=== PATIENT | female | born 1965 | race Caucasian/White ===

== ENCOUNTER 2019-11-28 07:56 | Day surgery (SDC) | payer BC, SELFPAY ==
[2019-10-05 14:51] VITALS: BMI 27.7
[2019-11-13 11:20] VITALS: BMI 27.7
--- NOTE | 2019-11-20 03:40 | HP.PCM_ITS ---
- Problem List (1) Encounter for pre-operative cardiovascular clearance Status: Acute (2) Incomplete uterovaginal prolapse Status: Acute Comment: plan [facility] BS combo case with Tyra, Franco (3) Multiple premature ventricular complexes Status: Resolved Comment: RFA 2011 History and Physical Date of Admission: 11/28/19 Intake Vital Signs 11/13/19 Height 5 ft 9 in 11/13/19 Weight: 191 lb 11/13/19 BMI 28.2 11/13/19 BP 122/76 H Intake Visit Reasons: Surgical consult, combo surg w/Tyra Vegetable Scullion Required: No Is patient in pain?: No Allergies No Known Allergies Allergy (Verified 11/13/19 11:16) Medications multivitamin 1 tab PO QDAY 09/22/17 [History Confirmed 10/05/19] naproxen sodium 220 mg tablet 220 mg PO QDAY PRN tab 09/23/17 [History Confirmed 10/05/19] vitamin E 400 unit capsule 400 unit PO QDAY 09/23/17 [History Confirmed 10/05/19] ascorbic acid (vitamin C) 1,000 mg tablet 1 g PO .QOD tab 10/05/19 [History Confirmed 10/05/19] carvedilol 6.25 mg tablet 6.25 mg PO BID #180 tab 10/05/19 [Rx Confirmed 10/05/19] cetirizine 10 mg tablet 10 mg PO DAILY 10/05/19 [History Confirmed 10/05/19] levothyroxine 88 mcg tablet 88 mcg PO DAILY 10/05/19 [History Confirmed 10/05/19] Is last menstrual period known: No Post menopausal: No Patient : No : No [facility] Social History (Updated 11/13/19 @ 13:[address] Earlene Ramirez MD) Smoking Status: Never smoker alcohol intake: current alcohol intake frequency: a few times a month Alcohol type: wine substance use type: does not use caffeine: Yes Type: coffee Number of servings: 3 HPI Surgical consult, combo surg debbie/Tyra: Details: ALLIE DOWNS is a 54 year old who presents for consultation for prolapse. she is having pelvic floor repair by dr goode and she needs a hysterectomy. she has a vaginal bulge and pressure, and ANGELA symptoms. Female Reproductive History Questions: Metorrhagia: No, Sexually active: Yes, Dyspareunia: Yes, PCB: No Menopausal Symptoms: No hot flashes, No night sweats, No weight change, No mood changes, No difficulty concentrating, No sleep problems, No change in libido Pregancy History Elective abortions Hx Para 3 Spontaneous abortions Hx # Term Pregnancies 3 Ectopic pregnancies Hx # Pregnancies Multiple births # of living children 3 Past Pregnancies Del. Date Name GA/Weeks Outcome Route Bth Weight [facility] F[facility]- Jud Unknown 1997- Neil Unknown 2000- Veronica COSME Const Constitutional: Denies fatigue, fever(s), headache(s), increased appetite, poor appetite, night sweats, weight gain or weight loss ENT ENT: Denies dizziness or dry mouth Cardio Card: Denies chest pain Resp Resp: Denies cough or dyspnea GI GI: Reports as per HPI; denies abdominal pain, constipation, nausea or vomiting : Reports as per HPI, prolapse symptoms and urinary incontinence; denies difficulty urinating, painful urination, hot flashes, pelvic pain, urinary frequency, urinary hesitancy, urinary urgency, vaginal discharge, vaginal dryness, vaginal odor or vaginal itching Musc Musc: Reports joint pain and back pain; denies muscle weakness Skin Skin/Breast: Denies hair loss, change in hair, dry skin, breast lump, breast pain or breast skin changes Neuro Neuro: Denies dizziness Psych Psych: Denies anxiety, change in sex drive, depression or difficulty concentrating Endo Endo: Denies cold intolerance, excessive sweating, heat intolerance or increased thirst Zander/Lymph Hematologic/Lymphatic: Denies easy bleeding, Denies easy bruising, Denies enlarged lymph nodes Exam Const General: cooperative, healthy appearing, comfortable, no acute distress, well developed Nutritional Appearance: average body habitus Orientation: alert [facility] Head: normal to inspection, normocephalic Ears: hearing grossly normal bilaterally, external ears normal Nose: external nose normal, nares normal Face and sinus: normal facial exam Neck Neck: normal visual inspection, no lymphadenopathy, trachea midline Thyroid: thyroid normal Chest Chest palpation & inspection: normal inspection of the chest Resp Effort & Inspection: normal respiratory effort Auscultation: clear to auscultation bilaterally Cardio Rate: regular rate Rhythm: regular rhythm Heart Sounds: S1 normal, S2 normal GI Inspection: normal to inspection, non-distended Palpation: soft, no hepatosplenomegaly General: bladder normal to palpation External Female Exam: normal external appearance, normal appearance of the urethra Urethra: normal appearance of the urethra, normal palpation, no discharge Speculum Exam - Vagina: normal appearance of the vagina, normal vaginal discharge Speculum Exam - Cervix: normal appearance of the cervix, nontender Bimanual Exam- Vagina & Uterus: normal bimanual exam, normal vaginal palpation, uterine size normal, bladder normal to palpation, uterine shape normal, No cervical tenderness, uterine mobility normal, uterine consistency normal, normal cervical palpation, uterus non-tender Bimanual Exam- Adnexa, other: normal adnexae, adnexae mobile, no adnexal masses, rectocele, cystocele, vaginal apex descent Pelvic Support: cystocele, rectocele, vaginal apex descent Musc Cervical Spine: other Other: gross motor intact no deficits, full bilateral strength Skin General: no rashes or lesions noted Neuro General: alert, awake, moves all extremities, no focal motor deficits Motor: muscle tone normal throughout Extrem General: normal to inspection, no pedal edema Psych Appearance: grossly normal Mental Status: mental status grossly normal Affect: normal affect Speech and Movement: speech and movement normal Assessment & Plan Problems 1. Incomplete uterovaginal prolapse N81.2 plan [facility] BS combo case with Tyra, Franco Mccurdy After discussing the patient's diagnosis and treatment plan options, patient wishes to proceed with surgical management. I have discussed with the patient the risks, benefits, and alternatives of the procedure which include but are not limited to risks of anesthesia, bleeding, infection, possible damage to bowel, bladder, or surrounding vasculature which could lead to additional surgery to ev aluate any complications. Patient agrees to procedure and wishes to proceed. ACOG/uptodate references given for additional information regarding procedure. Coding Level of Care Code Off vis,new,level 4 Diagnoses Incomplete uterovaginal prolapse N81.2
--- NOTE | 2019-11-23 10:28 | EKG12_ITS ---
Test Reason : PRE OP Blood Pressure : / mmHG Vent. Rate : 057 BPM Atrial Rate : 057 BPM P-R Int : 172 ms QRS Dur : 080 ms QT Int : 424 ms P-R-T Axes : 050 -35 009 degrees QTc Int : 412 ms Sinus bradycardia Left axis deviation Low voltage QRS Septal infarct , age undetermined Abnormal ECG Confirmed by RANJAN CASE, PATTY ([id number]), social media editor NAIDA MIJARES ([id number]) on 11/27/2019 10:51:02 A M Referred By: Diane Mary Confirmed By:BRYCE WOODRUFF MD
[2019-11-23 10:40] LABS: Hematocrit 40.6 % (37-47); Hemoglobin 13.8 g/dL (12.0-15.0); Mean Corpuscular Hgb 32.4 pg (27.0-32.0); Mean Corpuscular Volume 95.3 fL (81-99); Mean Platelet Vol. 9.4 fl (6.2-12.0); Platelet Count 223 K/mm3 (150-450); RBC Distribution Width CV 12.1 % (11.6-14.6); RBC Distribution Width SD 42.3 fl (35.1-43.9); Red Blood Count 4.26 M/mm3 (4.2-5.4); White Blood Count 4.6 K/mm3 (4.4-11.0)
[2019-11-23 10:45] LABS: Internal QC Validated? YES +Cl - CLEAR BKGD; Pregnancy, Urine Negative Negative
[2019-11-23 11:18] LABS: Anion Gap 6 (5-15); BUN 13 mg/dL (7-18); BUN/Creat Ratio 15.1 RATIO (10-20); Calcium,Total 9.2 mg/dL (8.5-10.1); Chloride 107 mmol/L (98-107); Creatinine, Serum 0.86 mg/dL (0.55-1.02); EST Glomerular Filtration Rate 73 mL/min (>60); Est Glom Filt Rate - Afr Amer 88 mL/min (>60); Glucose 83 mg/dL (74-106); Sodium Level 141 mmol/L (136-145); Thyroid Stim Hormone (TSH) 8.92 uIU/mL (0.358-3.74)
[2019-11-28] VITALS (14 sets, daily range): BP systolic 92–123; BP diastolic 54–79; PULSE 57–83; RESP 12–18; TEMP 36.4–36.6; O2SAT 95–100; BMI 28.5
--- NOTE | 2019-11-28 08:20 | HP.PCM_ITS ---
Problem List (1) Incomplete uterovaginal prolapse Status: Acute Comment: plan [facility] BS combo case with Tyra Franco History of Present Illness Date of Admission: 11/28/19 Chief Complaint: pelvic organ prolapse The patient is a 54 year old F with pelvic organ prolapse. She was evaluated in the office with cystoscopy and urodynamics. She now presents for definitive surgical intervention in combination with Dr. Ramirez. Risks were discussed preoperatively including that of anesthesia, bleeding, infection, injury, long- term risks and then risks of COVID 19 both the infection and increased complication if she has the disease. She understands and desires to proceed. Past Medical History Medical History: Medical History (Last Reviewed 11/28/19 @ 08:[address] Diane Mary MD) Multiple premature ventricular complexes (Resolved) I49.49 RFA 2011 Hypothyroidism E03.9 PVC's (premature ventricular contractions) I49.3 Scoliosis M41.9 Paroxysmal ventricular tachycardia I47.2 RFA 2011 Palpitations (Inactive) R00.2 Primary cardiomyopathy (Inactive) I42.8 Allergies No Known Allergies Allergy (Verified 11/28/19 08:01) Home Medications: Ambulatory Orders Medication Instructions Recorded multivitamin 1 tab PO QDAY 09/22/17 naproxen sodium 220 mg tablet 220 mg PO QDAY PRN tab 09/23/17 vitamin E 400 unit capsule 400 unit PO QDAY 09/23/17 carvedilol 6.25 mg tablet 6.25 mg PO BID #180 tab 10/05/19 cetirizine 10 mg tablet 10 mg PO DAILY 10/05/19 levothyroxine 88 mcg tablet 112 mcg PO DAILY 10/05/19 Vitamin B Complex 1 ea PO DAILY 11/21/19 Surgical History: Surgical History (Last Reviewed 11/28/19 @ 08:[address] Diane Mary MD) History of umbilical hernia repair Z98.890, Z87.19 History of radiofrequency ablation (RFA) procedure for cardiac arrhythmia Onset Date: 01/02/12 Z98.890 01/02/2012 EP with RFA for PVCs at [facility] Smoking Status: Never smoker Tobacco Use: Non-smoker Review of Systems Constitutional: Denies: Anorexia, Chills Eyes: Denies: Vision Change HEENT: Denies: Difficulty Swallowing, Visual Changes Cardiovascular: Denies: Chest Pain, Chest Pressure Respiratory: Denies: Cough, Shortness of Breath Gastrointestinal: Denies: Abdominal Pain, Nausea, Vomiting Genitourinary: Denies: Dysuria, Hematuria Gynecological: Denies: Vaginal discharge Musculoskeletal: Denies: Muscle pain Skin: Denies: Wounds Neurological: Denies: Difficulty swallowing VTE Information - Inpt Only VTE Present on Admission: Yes VTE Mechan Device Prophylaxis: SCD's VTE Pharm Prophylaxis ordered?: Yes - Physical Exam Vitals/I&O's: Body Mass Index (BMI) 27.7 General: Alert, Oriented x3, Cooperative HEENT: Atraumatic, Normocephalic Oral: Moist Mucosa Neck: Supple, Trachea Midline Lungs: Normal air movement Cardiovascular: Regular rate, Regular Rhythm Abdomen: Soft, Non Tender, Non-Distended Extremities: No cyanosis Skin: No rashes Musculoskeletal: No Muscle Wasting Neurological: Cranial nerves II-XII grossly intact, Neuro grossly intact Psych/Mental Status: Normal Affect, Alert and oriented to time, place, person, mood and affect Laboratory Results 11/23/19 10:19: Magnesium Pending Current Medications Acetaminophen (Tylenol) 1,000 mg PO PREOP ONE Stop: 11/28/19 09:41 Celecoxib (Celebrex) 400 mg PO X1 ONE Stop: 11/28/19 09:41 Dexamethasone Sodium Phosphate (Decadron) 8 mg IV X1 ONE Stop: 11/28/19 09:41 Enoxaparin Sodium (Lovenox) 40 mg SC X1 ONE Stop: 11/28/19 09:41 Gabapentin (Neurontin) 600 mg PO PREOP ONE Stop: 11/28/19 09:41 Lactated Ringer's () 1,000 mls @ 40 mls/hr IV .Q25H FERCHO Cefazolin Sodium 2 gm/ Sodium (Chloride) 110 mls @ 150 mls/hr IV PREOP ONE Stop: 11/28/19 10:23 Lactated Ringer's () 1,000 mls @ 70 mls/hr IV .[id number] FERCHO Magnesium Sulfate 2.5 gm/ (Sodium Chloride) 105 mls @ 52 mls/hr IV X1 ONE Stop: 11/28/19 10:12 Insulin Human Lispro (Humalog Kwikpen (Bkc)) 0 unit SC Q4H PRN PRN; Protocol PRN Reason: BG >/= 180, SEE PROTOCOL Ondansetron HCl (Zofran) 4 mg IV X1 ONE Stop: 11/28/19 09:41 Scopolamine HBr (Transderm-Scop) 1 patch TRANSDERM. X1 ONE Stop: 11/28/19 09:41 Assessment/Plan All Active Problems (Last Reviewed 10/05/19 @ 15:[address] Josh Palacios MD) Incomplete uterovaginal prolapse (Acute) Encounter for pre-operative cardiovascular clearance (Acute) Multiple premature ventricular complexes (Resolved) proceed with pelvic reconstruction with , hysterectomy. Procedure Criteria Procedure Type: Elective COVID Risk Discussion: The surgeon/proceduralist and patient have discussed in detail the risk of exposure to and/or potential harm posed by the COVID-19 virus with having a surgery/procedure at this time versus the risk of delaying the surgery/procedure. It is not possible to know either the risk of delaying the surgery or procedure or chance of getting an infection with perfect accuracy, but a joint decision was made between the patient and the surgeon/proceduralist to proceed at this time with the scheduled surgery/procedure as indicated on the consent form.
[2019-11-28 08:26] LABS: Bedside Glucose 105 mg/dL (70-110)
[2019-11-28 08:32] LABS: Magnesium 2.4 mg/dL (1.6-2.6)
[2019-11-28] MEDS: Acetaminophen 500 MG Tablet 1000 MG PO ×2 (08:36→20:56)
[2019-11-28] MEDS: Gabapentin 600 MG Tablet PO (08:36)
[2019-11-28] MEDS: Celecoxib 200 MG Capsule 400 MG PO (08:36)
[2019-11-28] MEDS: Scopolamine 1mg/72hr Patch 1 PATCH TRANSDERM. (08:37)
[2019-11-28] MEDS: Enoxaparin 40 MG/0.4 ML Syringe SC (08:37)
[2019-11-28] MEDS: Lactated Ringers 1,000 ML 40 ML IV (08:40)
[2019-11-28] MEDS: dexAMETHasone 10 MG/ML Vial 8 MG IV (08:44)
[2019-11-28] MEDS: Cefazolin 2 GM in 0.9% Normal Saline 100 ML IV (09:48)
--- NOTE | 2019-11-28 09:51 | OP.PCM_ITS ---
Problem List (1) Encounter for pre-operative cardiovascular clearance Status: Acute (2) Incomplete uterovaginal prolapse Status: Acute Comment: plan [facility] BS combo case with Tyra, Franco Report of Operation Date of Procedure: 11/28/19 Pre-Operative Diagnosis: prolapse Post-Operative Diagnosis: same Surgery/Procedure Performed:: tvh bs Description of Surgical Findings:: prolapsed uterus access services representative: Kashif Martinez Type of Anesthesia:: General Special Medications: none Specimen's removed: uterus tubes Drains: george Estimated Blood Loss (mL): 50 Fluids Replaced: crystalloid Description of Procedure: Patient was taken to the operating room and was placed under general anesthesia was prepped and draped in normal sterile fashion in the dorsal lithotomy position. Preoperative antibiotics and SCDs and George catheter was placed inside the bladder. Weighted speculum was placed in the vagina and the anterior and posterior lip of the cervix was grasped with 2 Sary clamps and circumferentially injected with dilute vasopressin. A circumferential incision was made with a scalpel and the posterior cul-de-sac was entered into sharply and a longneck speculum was placed. The anterior cul-de-sac was also dissected down and entered into sharply and the uterosacral ligaments were clamped cut and suture ligated bilaterally followed by the cardinal ligaments which were Clamped cut and suture ligated bilaterally with 0 Monocryl. The uterus serially descended and progressive bites were taken bilaterally up to the level of the utero-ovarian ligament bilaterally which was clamped transected and double ligated with 0 Monocryl suture and 0 Vicryl free tie. Bilateral fallopian tubes and ovaries were well visualized and noted be within normal limits and the right fallopian tube was transected across the base with a Michelle clamp and removed and sutured with 0 Vicryl suture. Excellent hemostasis was noted. left tube visualized but outside of operative field to safely remove. nl ovaries bilaterally. The vagina was closed with [id number] 0 Vicryl pop offs including the posterior and anterior peritoneum in the reapproximation. Excellent hemostasis was noted. All instruments removed from the vagina clear urine was noted at the end of the procedure and patient was awoken and taken recovery in stable condition. Grafts/Implants Used: see urogyn note - Complications none - Admit VTE Documentation VTE Present on Admission: No VTE Mechan Device Prophylaxis: SCD's VTE Pharm Prophylaxis ordered?: Yes Multi Select Codes - Urinary/Genital Urinary/Genital CPT Codes: 37810 TVH+BS/O <250gr uterus
--- NOTE | 2019-11-28 09:55 | DCINST_ITS ---
Discharge Diet: No Restrictions Discharge Activity: Return to Normal Activity, May Not Drive, May Shower May resume sexual activity in: 6-8 weeks Call your doctor if your incision/area has: Continuous Slow Oozing, Sudden Increased Bleeding, Increased Pain/ Swelling, Increased Redness, Foul Smelling Discharge Call your doctor if you observe: Fever of 101 or Higher, Inability to urinate, Inability to have a bowel movement, Using more than one pad per hour Allergies/Adverse Reactions: Allergies No Known Allergies Allergy (Verified 11/28/19 08:01) Medications to take at Discharge multivitamin 1 tab PO QDAY 09/22/17 naproxen sodium 220 mg tablet 220 mg PO QDAY PRN tab 09/23/17 vitamin E 400 unit capsule 400 unit PO QDAY 09/23/17 carvedilol 6.25 mg tablet 6.25 mg PO BID #180 tab 10/05/19 cetirizine 10 mg tablet 10 mg PO DAILY 10/05/19 levothyroxine 88 mcg tablet 112 mcg PO DAILY 10/05/19 Vitamin B Complex 1 ea PO DAILY 11/21/19 Naproxen [Naprosyn] 250 - 500 mg PO Q8H PRN PRN #30 tab 11/28/19 Oxycodone HCl/Acetaminophen [Percocet 5-325] 1 - 2 tablet PO Q6H PRN PRN 7 Days #15 tablet 11/28/19 The following prescriptions were given: Naproxen [Naprosyn] 250 - 500 mg PO Q8H PRN PRN #30 tab PRN Reason: MILD PAIN Transmission Status: Pending to [facility] Oxycodone HCl/Acetaminophen [Percocet 5-325] 1 - 2 tablet PO Q6H PRN PRN 7 Days #15 tablet PRN Reason: Pain Transmission Status: Sent to [facility] Primary Care Physician: Mitzi Jones PA-C [Primary Care Provider] - Test Results: Test results from this visit will be discussed in further detail at your follow- up appointment, if applicable. Please Follow Up With: Earlene Ramirez MD - [phone]
--- NOTE | 2019-11-28 10:00 | HYST_PTH ---
PATIENT: ALLIE DOWNS LOC: [facility] U#:[id number] AGE/SX: 54/F ROOM: RE11/28/[address]: ELIZABETH Dubose : 1965 BED: DIS: 11/29/2019 SPEC #: [id number] RECD: 11/28/19 12:18 STATUS: SRIKANTH REBev #: [id number] DONALDO: 11/28/19 10:[address]: Earlene Ramirez DEPT: SURGICAL PATHOLOGY RECD BY: Dany Moses ENTERED: 11/28/19 12:41 SP TYPE: HYSTERECT OTHR DR: MD Dr. Earlene Bradford MD Kimberly Hills, PA-C Tissues: A - Uterus, NOS B - Uterus, NOS Procedures: Decalcification bone/plaque Surgery Specimen Level IV Surgery Specimen Level V Comments: @ Ordering doctor for SUIV edited from to @ by MUNA at 12/01/19 1022 @ Submitting doctor edited from to @ by RGOOD at 12/01/19 1022 HEADER OPERATION: ERAS, vaginal hysterectomy, right salpingectomy PRE-OP DIAGNOSIS: Incomplete uterovaginal prolapse TISSUE SUBMITTED: A - Uterus and right fallopian tube, B - Cul-de-sac tissue MICROSCOPIC DIAGNOSIS A. Uterus and right fallopian tube, vaginal hysterectomy and right salpingectomy: Cervix - mild chronic cystic cervicitis. Endometrium - proliferative endometrium. Myometrium - focal superficial adenomyosis. Right fallopian tube - no pathologic diagnosis. B. Cul-de-sac tissue: A piece of fibroconnective tissue with extensive dystrophic calcification. SJ:rg 12/01/19 A. MICROSCOPIC DESCRIPTION Slides are reviewed. GROSS DESCRIPTION A - Received in fixative is one container labeled with the patient's name and designated uterus and right fallopian tube. The specimen consists of a hysterectomy specimen consisting of uterus with cervix and detached fallopian tube identified as right. The uterus with cervix weighs 30 gm and measures 7.5 x 4 x 2.2 cm. The serosal surface is mead, glistening. The ectocervical mucosa is unremarkable. The external os is slit-like in contour. The endocervical canal measures 3 cm in length and the endocervical mucosa is unremarkable. The triangular endometrial cavity measures 3.5 cm in length and 1.5 cm in width. The endometrium is mead, glistening without any mass lesion and measures <0.1 cm in thickness. Sections of the uterine wall do not reveal any mass lesion and measures up to 1.4 cm in thickness. The detached fallopian tube identified as right measures 3.2 cm in length and 0.5 cm in diameter. The fimbrial end is identified. Sections reveal unremarkable cut surfaces. Shipping Receiving Manager sections are submitted in seven cassettes as follows: 1 - anterior cervix, 2 - posterior cervix, 3 & 4 - anterior uterine wall, 5 & 6 - posterior uterine wall, 7 - fallopian tube identified as right. B - Received in fixative is one container labeled with the patient's name and designated cul-de-sac tissue. The specimen consists of a piece of indurated tissue measuring 2.5 x 1.7 x 1 cm. Shipping Receiving Manager sections are submitted in one cassettes after decalcification. / SJ:rg 11/28/19 TC:5 CPT: 35248, 62356, 80659
[2019-11-28] MEDS: Ondansetron 4 MG/2 ML Vial IV (11:30)
[2019-11-28] MEDS: Lactated Ringers 1,000 ML 70 ML IV ×3 (11:30→20:54)
[2019-11-28] MEDS: Vasopressin 20 UNITS/ML Vial (11:47)
[2019-11-28] MEDS: Estrogens,Conj. 1 Tube 1 DOSE (11:51)
--- NOTE | 2019-11-28 12:04 | PCM.OPRPT ---
Problem List (1) Incomplete uterovaginal prolapse Status: Acute Comment: plan [facility] BS combo case with Tyra, Franco Report of Operation Date of Procedure: 11/28/19 Pre-Operative Diagnosis: uterovaginal prolapse, urethral hypermobility Post-Operative Diagnosis: same Surgery/Procedure Performed:: anterior repair, posterior repair, right sacrospinous ligament fixation, midurethral sling, cystoscopy with bilateral ureteral catheterization Type of Anesthesia:: General Estimated Blood Loss (mL): 50cc Description of Procedure: The patient is a 54-year-old female with prolapse who presents for surgical definitive repair. Informed consent was obtained preoperatively. She was evaluated in the office with cystoscopy and urodynamics. The patient was taken to the operating room and placed on the operating room table. Anesthesia monitored the head, neck, airway, IV access and vital signs throughout the case. Once anesthesia was appropriate ministered the patient was placed into exaggerated dorsal lithotomy in Trendelenburg position. Dr. Ramirez then performed a hysterectomy with removal of her right fallopian tube and ovary and closure of the vaginal cuff. The procedure was then turned over to ma. Her anterior vaginal wall was injected submucosally with vasopressin for hydrostatic dissection and hemostatic control. A midline vertical incision approximately 2 cm in length was then made. Both sharp and blunt dissection was performed until bilaterally the pubocervical fascia was identified and brought together in a 2 layer closure with 2-0 Vicryl suture. The vagina was closed using running interlocking 2-0 Vicryl. At this time attention was turned towards the posterior defect. Once again the vagina was injected in the submucosal area. A midline incision was made followed by sharp and blunt dissection until the right ischial spine was palpable. The sacrospinous ligament was identified and freed from surrounding tissues. Using a Monodek suture and a Capio device, the suture was passed through the right sacrospinous ligament and was then brought through the vagina full-thickness at the apex. At this time the posterior defect was closed by bringing the rectovaginal fascia together in a 2 layer closure with 2-0 Vicryl suture. The vaginal mucosa was then closed with running interlocking 2-0 Vicryl. The area of the mid urethra was then submucosally injected and a vertical midline incision was made. Sharp and blunt dissection was performed on either side of the urethra with care being taken to avoid entrance into the urethra or the bladder. There was difficulty with the first passage of the alto's mid urethral sling on the patient's left side as the tensioning suture was unable to be identified following passage of the second trocar. The sling was then cut the tines were left in situ. A second sling was inserted using the trochars and there was no difficulty. The sling lay flat against the urethra without tension. The tensioning suture was then cut. The vertical midline incision was then closed with running interlocking 2-0 Vicryl. A cystourethroscopy was then performed revealing no entry into the urinary bladder or the urethra with any foreign object. At this time using the 30 degree lens, a 5 Slovenian whistle-tip catheter was easily inserted first into the left ureteral orifice to 20 cm followed by the right side. There is no obstruction and no blood was seen. At this time the Dyer catheter was replaced and the bladder was emptied. The vagina was packed with Premarin cream and vaginal packing. The patient was then awakened and taken to the recovery room in good condition. There were no complications during this procedure. Grafts/Implants Used: Altis midurethral sling - Complications none - Admit VTE Documentation VTE Present on Admission: Yes VTE Mechan Device Prophylaxis: SCD's VTE Pharm Prophylaxis ordered?: Yes
--- NOTE | 2019-11-28 12:11 | PCM.DC.URO ---
Discharge Diet: No Restrictions Discharge Activity: May Not Drive, May Shower May resume sexual activity in: 8 weeks Additional Activity Instructions:: No exercise, no strenuous activity, no intercourse, nothing per vagina except patient is to continue vaginal estrogen cream. No lifting over 5 pounds, no vacuuming. Call your doctor if your incision/area has: Continuous Slow Oozing, Sudden Increased Bleeding, Increased Pain/ Swelling, Increased Redness, Foul Smelling Discharge Call your doctor if you observe: Fever of 101 or Higher, Inability to urinate, Inability to have a bowel movement, Using more than one pad per hour Allergies/Adverse Reactions: Allergies No Known Allergies Allergy (Verified 11/28/19 08:01) Medications to take at Discharge multivitamin 1 tab PO QDAY 09/22/17 naproxen sodium 220 mg tablet 220 mg PO QDAY PRN tab 09/23/17 vitamin E 400 unit capsule 400 unit PO QDAY 09/23/17 carvedilol 6.25 mg tablet 6.25 mg PO BID #180 tab 10/05/19 cetirizine 10 mg tablet 10 mg PO DAILY 10/05/19 levothyroxine 88 mcg tablet 112 mcg PO DAILY 10/05/19 Vitamin B Complex 1 ea PO DAILY 11/21/19 Naproxen [Naprosyn] 250 - 500 mg PO Q8H PRN PRN #30 tab 11/28/19 Oxycodone HCl/Acetaminophen [Percocet 5-325] 1 - 2 tab PO Q6H PRN PRN 7 Days #15 tab 11/28/19 The following prescriptions were given: Naproxen [Naprosyn] 250 - 500 mg PO Q8H PRN PRN #30 tab PRN Reason: MILD PAIN Transmission Status: Received by [facility] Oxycodone HCl/Acetaminophen [Percocet 5-325] 1 - 2 tab PO Q6H PRN PRN 7 Days #15 tab PRN Reason: Pain Transmission Status: Received by [facility] Primary Care Physician: Mitzi Jones PA-C [Primary Care Provider] - Test Results: Test results from this visit will be discussed in further detail at your follow-up appointment, if applicable. Please Follow Up With: Diane Mary MD When: call office for appt Proposed Discharge Date: 11/29/19
[2019-11-28] MEDS: Ketorolac 30 MG/ML Syringe IV ×2 (15:42→21:03)
[2019-11-28] MEDS: 0.9% Saline Lock 10 ML Syringe IV (15:44)
[2019-11-28] MEDS: Cefazolin 1 GM/50 ML BAG IV (18:36)
[2019-11-28] MEDS: Docusate Sodium 100 MG Capsule PO (21:04)
[2019-11-29] MEDS: Cefazolin 1 GM/50 ML BAG IV (01:33)
[2019-11-29 01:45] VITALS: BP 104/58; PULSE 51; RESP 16; TEMP 36.8; O2SAT 100
[2019-11-29] MEDS: Acetaminophen 500 MG Tablet 1000 MG PO ×2 (03:53→10:42)
[2019-11-29] MEDS: Ketorolac 30 MG/ML Syringe IV ×2 (03:54→10:43)
[2019-11-29 05:40] LABS: Hematocrit 33.3 % (37-47); Mean Corpuscular Volume 96.8 fL (81-99); Mean Platelet Vol. 9.1 fl (6.2-12.0); Platelet Count 185 K/mm3 (150-450); RBC Distribution Width CV 12.2 % (11.6-14.6); RBC Distribution Width SD 42.7 fl (35.1-43.9); Red Blood Count 3.44 M/mm3 (4.2-5.4); White Blood Count 8.1 K/mm3 (4.4-11.0)
[2019-11-29] MEDS: Levothyroxine 112 MCG Tablet PO (06:00)
[2019-11-29 06:46] VITALS: O2SAT 95
--- NOTE | 2019-11-29 07:58 | PCM.PN.OB ---
Subjective: Pain controlled. NO SOB, CP. Doing well. Tolerating PO intake. - Physical Exam Vitals/I&O's: Vital Signs Temp Pulse Resp BP Pulse Ox 98.2 F 51 L 16 104/58 L 95 11/29/19 01:45 11/29/19 01:45 11/29/19 01:45 11/29/19 01:45 11/29/19 06:46 Oxygen Flow Rate (L/min) 6 Oxygen Delivery Method Room Air Weight: 190 lb 11.198 oz Body Mass Index (BMI) 28.5 Intake and Output for Last 24 Hours 11/27/19 11/28/19 11/29/19 23:59 23:59 23:59 Intake Total 3692.16 / 3692.16 700 / 700 Output Total 1270 / 1270 350 / 350 Balance 2422.16 / 2422.16 350 / 350 General: Oriented x3 HEENT: Atraumatic Skin: No rashes Psych/Mental Status: Normal Affect Laboratory Results 11/28/19 08:16: Magnesium 2.4 11/28/19 08:22: POC Glucose 105 11/29/19 05:28: WBC 8.1, RBC 3.44 L, Hgb 11.0 L, Hct 33.3 L, MCV 96.8, MCH 32.0, MCHC 33.0, RDW Std Deviation 42.7, RDW Coeff of Darlin 12.2, Plt Count 185, MPV 9.1 Current Medications Acetaminophen (Tylenol) 1,000 mg PO Q6H [facility] Last Admin: 11/29/19 03:53 Dose: 1,000 mg Documented by: Carvedilol (Coreg) 6.25 mg PO BID [facility] Last Admin: 11/28/19 22:38 Dose: Not Given Documented by: Docusate Sodium (Colace) 100 mg PO BID [facility] Last Admin: 11/28/19 21:04 Dose: 100 mg Documented by: Enoxaparin Sodium (Lovenox) 40 mg SC DAILY [facility] Lactated Ringer's () 1,000 mls @ 70 mls/hr IV .[id number] [facility] Stop: 11/29/19 13:54 Last Admin: 11/28/19 20:54 Dose: 70 mls/hr Documented by: Sodium Chloride () 250 mls @ 15 mls/hr IV .[id number] PRN PRN Reason: Saline Flush Ketorolac Tromethamine (Toradol (Bkc)) 30 mg IV Q6H [facility] Stop: 11/29/19 22:01 Last Admin: 11/29/19 03:54 Dose: 30 mg Documented by: Levothyroxine Sodium (Synthroid) 112 mcg PO DAILY@0600 [facility] Last Admin: 11/29/19 06:00 Dose: 112 mcg Documented by: Loratadine (Claritin) 10 mg PO DAILY [facility] Magnesium Oxide (Mag-Ox 400) 400 mg PO DAILY PRN PRN PRN Reason: Constipation Multivitamins (Multivitamin) 1 tablet PO DAILY@0800 [facility] Nutritional Formula (Lactose Free) (Ensure Enlive) 120 ml PO TIDCM [facility] Ondansetron HCl (Zofran Odt) 4 mg PO Q6H PRN PRN PRN Reason: NAUSEA Oxycodone HCl (Oxyir) 5 - 10 mg PO Q4H PRN PRN PRN Reason: Pain Score 4-10/10 Prochlorperazine Edisylate (Compazine Iv) 10 mg IV Q6H PRN PRN PRN Reason: nausea/ vomiting Promethazine HCl (Phenergan) 12.5 mg IV Q6H PRN PRN PRN Reason: NAUSEA/VOMITING Sodium Chloride () 10 - 40 ml IV UD PRN PRN Reason: SALINE FLUSH Last Admin: 11/28/19 15:44 Dose: 10 ml Documented by: Medical Necessity - Tobacco Use Smoking Status: Never smoker Tobacco Use: Non-smoker Assessment/Plan All Active Problems (Last Reviewed 11/28/19 @ 08:[address] Diane Mary MD) Incomplete uterovaginal prolapse (Acute) Encounter for pre-operative cardiovascular clearance (Acute) Multiple premature ventricular complexes (Resolved) TVH RS combination case Dr. Mary postop day #1 Routine care See note and discharge instructions per Dr. Mary Plans home today.
--- NOTE | 2019-11-29 08:14 | PCM.PN.BLA ---
Progress Note Patient is post-op day #1 from hysterectomy and pelvic reconstruction. Up in bed, struggling with nausea but hasn't asked for medication for it. Vitals are good. Abdomen soft, urine clear. Dyer and packing removed. Trial of void, ambulate, nausea control, nursing getting zofran, home later today. STROKE Vital Signs/Narrative: Vital Signs Pulse Ox 11/29/19 06:46 95
[2019-11-29 08:20] VITALS: BP 99/58; PULSE 60; RESP 16; TEMP 36.9; O2SAT 100
[2019-11-29] MEDS: Ondansetron ODT 4 MG Tablet PO (10:03)
[2019-11-29] MEDS: Docusate Sodium 100 MG Capsule PO (10:42)
[2019-11-29] MEDS: Loratadine 10 MG Tablet PO (10:42)
[2019-11-29] MEDS: Multivitamins,Therapeutic Tablet 1 TABLET PO (10:42)
[2019-11-29] MEDS: Enoxaparin 40 MG/0.4 ML Syringe SC (10:43)
[2019-11-29 14:05] VITALS: BP 109/64; PULSE 52; RESP 16; TEMP 36.8; O2SAT 98
== END 2019-11-29 16:37 | disposition home or self-care (01) ==
LOC: SDC 07:59 → AC 08:03 → MS3 11:11
PROVIDERS: Anesthesiology; Obstetrics & Gynecology; PCP Family Medicine; Referring Provider Urology; Visit Provider Nurse Practitioner Family
PROC: (CPT 58260; principal; 2019-11-28 09:40)
PROC: (CPT 57260; 2019-11-28 09:40)
DX: N81.2 Incomplete uterovaginal prolapse (principal); Z11.59 Encounter for screening for other viral diseases; I49.3 Ventricular premature depolarization; M41.9 Scoliosis, unspecified; E03.9 Hypothyroidism, unspecified; Z79.899 Other long term (current) drug therapy; G25.81 Restless legs syndrome; K21.9 Gastro-esophageal reflux disease without esophagitis; N36.41 Hypermobility of urethra
CPT/HCPCS: 00940; 57260; 57288; 58262; 36415; 80048; 81025; 82962; 83735; 84443; 85027; 86850; 86900; 86901; 87635; 88305; 88307; 88311; 93005; 99251; G2023; J7120; A4216; G0463; J2405; U0003

== ENCOUNTER → 2019-12-04 11:46 | Outpatient (CLI) | payer BC, SELFPAY ==
[2019-11-28 08:25] VITALS: BMI 28.5
[2019-12-04 12:23] LABS: Hematocrit 41.1 % (37-47); Hemoglobin 13.4 g/dL (12.0-15.0); Mean Corp Hgb Conc 32.6 g/dL (32-36); Mean Corpuscular Volume 98.1 fL (81-99); Mean Platelet Vol. 9.2 fl (6.2-12.0); Platelet Count 282 K/mm3 (150-450); RBC Distribution Width CV 12.4 % (11.6-14.6); RBC Distribution Width SD 44.2 fl (35.1-43.9); Red Blood Count 4.19 M/mm3 (4.2-5.4); White Blood Count 5.7 K/mm3 (4.4-11.0)
[2019-12-04 12:37] LABS: Anion Gap 4 (5-15); BUN 14 mg/dL (7-18); BUN/Creat Ratio 17.2 RATIO (10-20); Calcium,Total 9.1 mg/dL (8.5-10.1); Chloride 106 mmol/L (98-107); Creatinine, Serum 0.82 mg/dL (0.55-1.02); EST Glomerular Filtration Rate 77 mL/min (>60); Est Glom Filt Rate - Afr Amer 94 mL/min (>60); Glucose 100 mg/dL (74-106); Sodium Level 139 mmol/L (136-145)
== END ==
PROVIDERS: PCP Family Medicine; Referring Provider Urology; Visit Provider Urology
DX: Z00.00 Encounter for general adult medical examination without abnormal findings (principal)
CPT/HCPCS: 36415; 80048; 85027

== ENCOUNTER 2019-12-07 12:31 | Outpatient (RCR) | payer BC, SELFPAY ==
[2019-11-28 08:25] VITALS: BMI 28.5
[2019-12-07 12:37] VITALS: BP 117/72; PULSE 84; RESP 16; TEMP 36.4; BMI 26.9
--- NOTE | 2019-12-07 16:37 | HP.PCM_ITS ---
(1) Pressure injury of back, unstageable Status: Acute Current Visit: Yes Code(s): L89.100 - Pressure ulcer of unspecified part of back, unstageable (2) H/O unilateral salpingectomy Status: Acute Current Visit: Yes Code(s): Z90.79 - Acquired absence of other genital organ(s) (3) History of total vaginal hysterectomy (TVH) Status: Acute Current Visit: Yes Code(s): Z90.710 - Acquired absence of both cervix and uterus (4) Incomplete uterovaginal prolapse Status: Acute Current Visit: Yes Code(s): N81.2 - Incomplete uterovaginal prolapse Comment: plan TVH BS combo case with Tyra, Franco History of Present Illness Date of Service: 12/07/19 Chief Complaint: Pressure injury back status post recent surgery for total hysterectomy History of Wound: This is a 54-year-old white female who presents to the wound healing center today with complaint of pressure injury to her low back. This occurred per patient report after her surgery for pelvic reconstruction and total hysterectomy on 11/28/2019. She states that it occurred due to the way she was positioned on the operating table. She notes that her surgery went well, however she did develop this pressure injury and has been placed on Bactrim and utilizing a dressing over top of the injury. She states that she has been trying to keep pressure off the injury. She denies any systemic signs of infection at this time. She denies any fever, chills, purulent drainage, or any other acute concerns. She denies any other aggravating relieving factors. All other systems reviewed and negative with exception of those listed above. Past Medical History Surgical History: - - See HPI Allergies/Adverse Reactions: Allergies No Known Allergies Allergy (Verified 12/07/19 12:56) Home Medications: Ambulatory Orders Medication Instructions Recorded multivitamin 1 tab PO QDAY 09/22/17 naproxen sodium 220 mg tablet 220 mg PO QDAY PRN tab 09/23/17 vitamin E 400 unit capsule 400 unit PO QDAY 09/23/17 cetirizine 10 mg tablet 10 mg PO DAILY 10/05/19 levothyroxine 88 mcg tablet 112 mcg PO DAILY 10/05/19 Vitamin B Complex 1 ea PO DAILY 11/21/19 carvedilol 6.25 mg tablet 3.125 mg PO BID #0 tab 11/30/19 Smz/Tmp Ds [Bactrim Ds] 1 tab PO BID 12/07/19 Smoking Status: Never smoker Review of Systems Constitutional: Denies: Chills, Fever, Weight Change Eyes: Denies: Pain, Vision Change HEENT: Denies: Difficulty Hearing, Difficulty Swallowing, Sinus Congestion Cardiovascular: Denies: Chest Pain, Palpitations Respiratory: Denies: Cough, Shortness of Breath Gastrointestinal: Denies: Diarrhea, Nausea, Vomiting Genitourinary: Denies: Dysuria, Hematuria Skin: Reports: Wounds - See HPI Endocrine: Denies: Heat/ Cold Intolerance, Polydipsia, Polyuria Hematologic/ Lymphatic: Denies: Easy Bruising, Easy Bleeding - Physical Exam Vital Signs Temp Pulse Resp BP 97.5 F L 84 16 117/72 12/07/19 12:37 12/07/19 12:37 12/07/19 12:37 12/07/19 12:37 General: Alert, Oriented x3, Cooperative, No apparent distress HEENT: Atraumatic Oral: Moist Mucosa Neck: Supple Lungs: Clear to auscultation, Normal air movement Cardiovascular: Regular rate, Regular Rhythm Abdomen: Soft, Non Tender Extremities: No clubbing, No cyanosis, No edema Skin: Ulcer/ Wound - Unstageable pressure injury to lower lumbar region with large amount of eschar and slough present, no signs of obvious infection at this time, no foul smell or drainage noted Wound Measurements and Assessment WC - Nurse 1 - General Ulcer Measurement Start: 12/07/19 12:36 Freq: Status: Active Protocol: Activity Type Activity Date Activity User E-Sign Co-Sign Detail Recorded Client Recorded Date Recorded By Document 12/07/19 12:37 [facility] [id number] 12/07/19 12:54 [facility] 12/07/19 12:37 Wound Center Nurse 1 [Ulcer Assessment] #1- LUMBAR -Combined with other wound No -Current Size (cm) - Length 1.2 -Current Size (cm) - Width 4.2 -Current Size (cm) - Depth 0.1 -Total Square Cm 5.04 -Date of Last Picture (Recall this 12/07/19 field) -Photo Taken Yes -Epithelialization None Present -Tunneling No -Undermining/Tunneling No -Circular Undermining No -Exudate Amt None Present -Wound Margin Distinct, Outline Attached -Granulation Amt None Present (0 %) -Slough/Fibrin Yes -Necrosis Amt Large (67-100%) -Necrotic Tissue Type Eschar -Texture (Genoveva-wound Skin Appearance) Assessed, Scarring -Moisture (Genoveva-wound Skin Appearance Assessed ) -Color (Genoveva-wound Skin Appearance) Assessed, Erythema -Temperature (Genoveva-wound Skin No Abnormality Appearance) (Pt Warm) -Tenderness on Palpation (Genoveva-wound No Skin Appearance) -Ulcer Cleansing Rinsed/ Irrigated with Saline -Foul Odor after Cleansing No -Anesthetic Used 5% Lidocaine Gel WC - Nurse 2 - General Ulcer CM Notes Start: 12/07/19 12:36 Freq: Status: Active Protocol: Activity Type Activity Date Activity User E-Sign Co-Sign Detail Recorded Client Recorded Date Recorded By Document 12/07/19 13:18 MW [id number] 12/07/19 13:32 MW 12/07/19 13:18 Wound Center Nurse 2 [Procedure/Treatment] -Time 13:19 -Correct Patient Yes -Correct Side, Site, Position Yes -Correct Procedure Yes -Procedure Performed Yes -Type of Procedure Debridement -Clinical Debridement Subcutaneous -Post Debridement Size (cm) - Length 1.7 -Post Debridement Size (cm) - Width 5.5 -Post Debridement Size (cm) - Depth 0.2 -Total Square (cm) 9.35 -Wound/Ulcer Outcome Not Healed -Ulcer Cleansing Rinsed/ Irrigated with Saline -Foul Odor after Cleansing No -Bioengineered Tissue No -Bleeding Controlled with Pressure -Offloading No -Treatment Response Procedure Tolerated Well [See Physician Procedure note for Specifics] Pain Scale: 0-10 Numeric [Pain] -Is Patient Pain Free? Yes Neurological: Neuro grossly intact Psych/Mental Status: Normal Affect, Appropriate, Alert and oriented to time, place, person, mood and affect Debridement Note Post-Debridement Measurements/Treatment WC - Nurse 2 - General Ulcer CM Notes Start: 12/07/19 12:36 Freq: Status: Active Protocol: Activity Type Activity Date Activity User E-Sign Co-Sign Detail Recorded Client Recorded Date Recorded By Document 12/07/19 13:18 MW [id number] 12/07/19 13:32 MW 12/07/19 13:18 Wound Center Nurse 2 #1- LUMBAR -Time 13:19 -Correct Patient Yes -Correct Side, Site, Position Yes -Correct Procedure Yes -Procedure Performed Yes -Type of Procedure Debridement -Clinical Debridement Subcutaneous -Post Debridement Size (cm) - Length 1.7 -Post Debridement Size (cm) - Width 5.5 -Post Debridement Size (cm) - Depth 0.2 -Total Square (cm) 9.35 -Wound/Ulcer Outcome Not Healed -Ulcer Cleansing Rinsed/ Irrigated with Saline -Foul Odor after Cleansing No -Bioengineered Tissue No -Bleeding Controlled with Pressure -Offloading No -Treatment Response Procedure Tolerated Well Pain Scale: 0-10 Numeric Is Patient Pain Free? Yes Wound debrided: Unstageable pressure injury lumbar Type of Debridement: Excisional debridement Anesthesia Used: 5% Lidocaine Gel Depth: in the subcutaneous layer Percentage of wound debrided: 100 Instrument Used: 5mm curette, #15 blade Tissue Removed: Slough, eschar, devitalized tissue Severity: Fat Layer Exposed Amount of bleeding with debridement: Mild Bleeding Controlled with: Pressure Patient tolerated procedure well Assessment/Plan Active Problems (Last Reviewed 11/28/19 @ 08:[address] Diane Mary MD) Pressure injury of back, unstageable (Acute) H/O unilateral salpingectomy (Acute ~11/2019) History of total vaginal hysterectomy (TVH) (Acute ~11/2019) Incomplete uterovaginal prolapse (Acute) plan TVH BS combo case with Tyra Franco Assessment: See above diagnoses Plan: The patient was seen and examined at the wound center today and was updated on the plan of care. A subcutaneous debridement was performed today. The patient tolerated the procedure well. The patients wound care will consist of: Application of Santyl and moistened gauze change daily. Hold wound cultures at this time and hold off on baseline blood work. Most recent blood work was reviewed. patient educated on the importance of diet on wound healing and instructed to increase protein and vitamin C intake. Patient verbalized understanding. Patient will follow up at wound healing center in one week or sooner if needed. Shar with patient red flag signs symptoms requiring urgent medical attention. Patient verbalized understanding. Discussed specific signs of infection. This note was generated with [employer] software. It may contain incorrect words, spelling, and punctuation that were not noted in checking the note before signing. Office Visits / Consults: [id number] OV L4 Est 111xxx-113xx: [id number] Marlin subq tissue 20 sq cm/<
== END 2019-12-08 23:59 ==
LOC: WC 12:31
PROVIDERS: PCP Family Medicine; Referring Provider Nurse Practitioner Family; Visit Provider Nurse Practitioner Family
DX: L89.100 Pressure ulcer of unspecified part of back, unstageable (principal); Z90.79 Acquired absence of other genital organ(s); Z90.710 Acquired absence of both cervix and uterus; N81.2 Incomplete uterovaginal prolapse
CPT/HCPCS: 11042; 99213; G0463

== ENCOUNTER 2020-01-04 12:45 | Outpatient (RCR) | payer BC, SELFPAY ==
[2019-12-13 12:11] VITALS: BMI 26.9
[2019-12-14 12:43] VITALS: BP 125/79; PULSE 73; RESP 18; TEMP 36.1; O2SAT 98; BMI 26.9
--- NOTE | 2019-12-14 20:22 | PN.PCM_ITS ---
(1) Pressure injury of back, unstageable Status: Acute Current Visit: Yes Code(s): L89.100 - Pressure ulcer of unspecified part of back, unstageable (2) Delayed wound healing Status: Acute Current Visit: Yes Code(s): T14.8XXD - Other injury of unspecified body region, subsequent encounter (3) H/O unilateral salpingectomy Status: Acute Current Visit: No Code(s): Z90.79 - Acquired absence of other genital organ(s) (4) History of total vaginal hysterectomy (TVH) Status: Acute Current Visit: No Code(s): Z90.710 - Acquired absence of both cervix and uterus Type of Wound Date of Service: 12/14/19 Chief Complaint: Pressure injury back status post recent surgery for total hysterectomy History of Wound: This is a 54-year-old white female who presents to the wound healing center today with complaint of pressure injury to her low back. This occurred per patient report after her surgery for pelvic reconstruction and total hysterectomy on 11/28/2019. She states that it occurred due to the way she was positioned on the operating table. She notes that her surgery went well, however she did develop this pressure injury and has been placed on Bactrim and utilizing a dressing over top of the injury. She states that she has been trying to keep pressure off the injury. She denies any systemic signs of infection at this time. She denies any fever, chills, purulent drainage, or any other acute concerns. She denies any other aggravating relieving factors. All other systems reviewed and negative with exception of those listed above. Progress of Wound: 12/14/19-pressure ulcer appears stable, less amount of slough and eschar today, doing well with santyl, no new concerns. - Physical Exam Vital Signs Temp Pulse Resp BP Pulse Ox 97.0 F L 73 18 125/79 H 98 12/14/19 12:43 12/14/19 12:43 12/14/19 12:43 12/14/19 12:43 12/14/19 12:43 General: Alert, Oriented x3, Cooperative, No apparent distress HEENT: Atraumatic Oral: Moist Mucosa Lungs: Clear to auscultation, Normal air movement Cardiovascular: Regular rate, Regular Rhythm Abdomen: Soft, Non Tender Extremities: No clubbing, No cyanosis, No edema Skin: Ulcer/ Wound - pressure ulcer to low back with adherant slough and eschar, no signs of obvious infection at this time Wound Measurements and Assessment WC - Nurse 1 - General Ulcer Measurement Start: 12/14/19 12:43 Freq: Status: Active Protocol: Activity Type Activity Date Activity User E-Sign Co-Sign Detail Recorded Client Recorded Date Recorded By Document 12/14/19 12:43 MT [id number] 12/14/19 12:56 MT 12/14/19 12:43 Wound Center Nurse 1 [Ulcer Assessment] #1- LUMBAR -Current Size (cm) - Length 4.1 -Current Size (cm) - Width 1.4 -Current Size (cm) - Depth 0.1 -Total Square Cm 5.74 -Exudate Amt None Present -Wound Margin Thickened -Granulation Amt Medium (34-66%) -Granulation Quality Hyper- granulation -Necrosis Amt Medium (34-66%) -Necrotic Tissue Type Eschar -Texture (Genoveva-wound Skin Appearance) Assessed,Callus -Moisture (Genoveva-wound Skin Appearance Assessed ) -Color (Genoveva-wound Skin Appearance) Assessed -Temperature (Genoveva-wound Skin No Abnormality Appearance) (Pt Warm) -Tenderness on Palpation (Genoveva-wound No Skin Appearance) -Ulcer Cleansing Rinsed/ Irrigated with Saline -Foul Odor after Cleansing No -Anesthetic Used 4% Lidocaine Solution [Edema Assessment] -Lower Limb Edema Present NA - Nurse 2 - General Ulcer CM Notes Start: 12/14/19 12:43 Freq: Status: Active Protocol: Activity Type Activity Date Activity User E-Sign Co-Sign Detail Recorded Client Recorded Date Recorded By Document 12/14/19 13:24 MW [id number] 12/14/19 13:26 MW 12/14/19 13:24 Wound Center Nurse 2 [Procedure/Treatment] #1- LUMBAR -Time 13:24 -Correct Patient Yes -Correct Side, Site, Position Yes -Correct Procedure Yes -Procedure Performed Yes -Type of Procedure Debridement -Clinical Debridement Subcutaneous -Post Debridement Size (cm) - Length 1.7 -Post Debridement Size (cm) - Width 4.5 -Post Debridement Size (cm) - Depth 0.2 -Total Square (cm) 7.65 -Wound/Ulcer Outcome Not Healed -Ulcer Cleansing Rinsed/ Irrigated with Saline -Foul Odor after Cleansing No -Bioengineered Tissue No -Bleeding Controlled with Pressure -Offloading No -Treatment Response Procedure Tolerated Well [See Physician Procedure note for Specifics] Pain Scale: 0-10 Numeric [Pain] -Is Patient Pain Free? Yes Neurological: Neuro grossly intact Psych/Mental Status: Normal Affect, Appropriate, Alert and oriented to time, place, person, mood and affect Debridement Note Post-Debridement Measurements/Treatment WC - Nurse 2 - General Ulcer CM Notes Start: 12/14/19 12:43 Freq: Status: Active Protocol: Activity Type Activity Date Activity User E-Sign Co-Sign Detail Recorded Client Recorded Date Recorded By Document 12/14/19 13:24 MW [id number] 12/14/19 13:26 MW 12/14/19 13:24 Wound Center Nurse 2 #1- LUMBAR -Time 13:24 -Correct Patient Yes -Correct Side, Site, Position Yes -Correct Procedure Yes -Procedure Performed Yes -Type of Procedure Debridement -Clinical Debridement Subcutaneous -Post Debridement Size (cm) - Length 1.7 -Post Debridement Size (cm) - Width 4.5 -Post Debridement Size (cm) - Depth 0.2 -Total Square (cm) 7.65 -Wound/Ulcer Outcome Not Healed -Ulcer Cleansing Rinsed/ Irrigated with Saline -Foul Odor after Cleansing No -Bioengineered Tissue No -Bleeding Controlled with Pressure -Offloading No -Treatment Response Procedure Tolerated Well Pain Scale: 0-10 Numeric Is Patient Pain Free? Yes Wound debrided: unstageable pressure injury low back Type of Debridement: Excisional debridement Anesthesia Used: 5% Lidocaine Gel Depth: in the subcutaneous layer Percentage of wound debrided: 100 Instrument Used: 3mm curette, 5mm curette Tissue Removed: slough and devitalized tissue Severity: Fat Layer Exposed Amount of bleeding with debridement: Mild Bleeding Controlled with: Pressure Patient tolerated procedure well Assessment/Plan Active Problems (Last Reviewed 12/13/19 @ 11:53 by Rebecca Lorenz) Delayed wound healing (Acute) Pressure injury of back, unstageable (Acute) Assessment: See above diagnoses Plan: The patient was seen and examined at the wound center today and was updated on the plan of care. A subcutaneous debridement was performed today. The patient tolerated the procedure well. The patients wound care will consist of: Application of Santyl and moistened gauze change daily. Hold wound cultures at this time and hold off on baseline blood work. Most recent blood work was reviewed. patient educated on the importance of diet on wound healing and instructed to increase protein and vitamin C intake. Patient verbalized understanding. Patient will follow up at wound healing center in one week or sooner if needed. Discussed with patient red flag signs symptoms requiring urgent medical attention. Patient verbalized understanding. Discussed specific signs of infection. This note was generated with [employer] dictation software. It may contain incorrect words, spelling, and punctuation that were not noted in checking the note before signing. 111xxx-113xx: [id number] Marlin subq tissue 20 sq cm/<
[2019-12-21 13:29] VITALS: BP 137/89; PULSE 81; RESP 20; TEMP 36.8; BMI 26.9
--- NOTE | 2019-12-21 19:45 | PN.PCM_ITS ---
(1) Pressure injury of back, unstageable Status: Acute Code(s): L89.100 - Pressure ulcer of unspecified part of back, unstageable (2) Delayed wound healing Status: Acute Code(s): T14.8XXD - Other injury of unspecified body region, subsequent encounter (3) H/O unilateral salpingectomy Status: Acute Code(s): Z90.79 - Acquired absence of other genital organ(s) (4) History of total vaginal hysterectomy (TVH) Status: Acute Code(s): Z90.710 - Acquired absence of both cervix and uterus Type of Wound Date of Service: 12/21/19 Chief Complaint: Pressure injury back status post recent surgery for total hysterectomy History of Wound: This is a 54-year-old white female who presents to the wound healing center today with complaint of pressure injury to her low back. This occurred per patient report after her surgery for pelvic reconstruction and total hysterectomy on 11/28/2019. She states that it occurred due to the way she was positioned on the operating table. She notes that her surgery went well, however she did develop this pressure injury and has been placed on Bactrim and utilizing a dressing over top of the injury. She states that she has been trying to keep pressure off the injury. She denies any systemic signs of infection at this time. She denies any fever, chills, purulent drainage, or any other acute concerns. She denies any other aggravating relieving factors. All other systems reviewed and negative with exception of those listed above. Progress of Wound: 12/21/19-pressure ulcer appears stable, less amount of slough and eschar today, doing well with santyl, no new concerns. - Physical Exam Vital Signs Temp Pulse Resp BP Pulse Ox 98.2 F 81 20 H 137/89 H 98 12/21/19 13:29 12/21/19 13:29 12/21/19 13:29 12/21/19 13:29 12/14/19 12:43 General: Alert, Oriented x3, Cooperative, No apparent distress HEENT: Atraumatic Oral: Moist Mucosa Lungs: Clear to auscultation, Normal air movement Cardiovascular: Regular rate, Regular Rhythm Extremities: No clubbing, No cyanosis, No edema Skin: Ulcer/ Wound - see nursing documentation, slough and devitalized tissue, no signs of infection at this time Neurological: Neuro grossly intact Psych/Mental Status: Normal Affect, Appropriate, Alert and oriented to time, place, person, mood and affect Debridement Note Post-Debridement Measurements/Treatment WC - Nurse 2 - General Ulcer CM Notes Start: 12/14/19 12:43 Freq: Status: Active Protocol: Activity Type Activity Date Activity User E-Sign Co-Sign Detail Recorded Client Recorded Date Recorded By Document 12/14/19 13:24 MW [id number] 12/14/19 13:26 MW Document 12/21/19 13:48 MW [id number] 12/21/19 13:52 MW 12/14/19 12/21/19 13:24 13:48 Wound Center Nurse 2 #1- LUMBAR -Time 13:24 13:48 -Correct Patient Yes Yes -Correct Side, Site, Position Yes Yes -Correct Procedure Yes Yes -Procedure Performed Yes Yes -Type of Procedure Debridement Debridement -Clinical Debridement Subcutaneous Subcutaneous -Post Debridement Size (cm) - Length 1.7 1.5 -Post Debridement Size (cm) - Width 4.5 4.2 -Post Debridement Size (cm) - Depth 0.2 0.2 -Total Square (cm) 7.65 6.30 -Wound/Ulcer Outcome Not Healed Not Healed -Ulcer Cleansing Rinsed/ Rinsed/ Irrigated with Irrigated with Saline Saline -Foul Odor after Cleansing No No -Bioengineered Tissue No No -Bleeding Controlled with Pressure Pressure -Offloading No No -Treatment Response Procedure Procedure Tolerated Well Tolerated Well Pain Scale: 0-10 Numeric Is Patient Pain Free? Yes Yes Wound debrided: unstageable pressure ulcer low back Type of Debridement: Excisional debridement Anesthesia Used: 5% Lidocaine Gel Depth: in the subcutaneous layer Percentage of wound debrided: 100 Instrument Used: 5mm curette, #15 blade Tissue Removed: slough and devitalized tissue Severity: Fat Layer Exposed Amount of bleeding with debridement: Mild Bleeding Controlled with: Pressure Patient tolerated procedure well Assessment/Plan Assessment: See above diagnoses Plan: The patient was seen and examined at the wound center today and was updated on the plan of care. A subcutaneous debridement was performed today. The patient tolerated the procedure well. The patients wound care will consist of: Application of Santyl and moistened gauze change daily. Hold wound cultures at this time and hold off on baseline blood work. Most recent blood work was reviewed. patient educated on the importance of diet on wound healing and instructed to increase protein and vitamin C intake. Patient verbalized understanding. Patient will follow up at wound healing center in one week or sooner if needed. Discussed with patient red flag signs symptoms requiring urgent medical attention. Patient verbalized understanding. Discussed specific signs of infection. This note was generated with [employer] dictation software. It may contain incorrect words, spelling, and punctuation that were not noted in checking the note before signing. [id number]: [id number] Marlin subq tissue 20 sq cm/<
[2019-12-28 13:03] VITALS: BP 123/77; PULSE 73; RESP 16; TEMP 36.1; BMI 26.9
--- NOTE | 2019-12-29 16:43 | PCM.WC.PN ---
(1) Pressure injury of lower back, stage 3 Status: Acute Current Visit: Yes Code(s): L89.103 - Pressure ulcer of unspecified part of back, stage 3 (2) Pressure injury of back, unstageable Status: Acute Current Visit: No Code(s): L89.100 - Pressure ulcer of unspecified part of back, unstageable (3) Delayed wound healing Status: Acute Current Visit: No Code(s): T14.8XXD - Other injury of unspecified body region, subsequent encounter (4) H/O unilateral salpingectomy Status: Acute Current Visit: No Code(s): Z90.79 - Acquired absence of other genital organ(s) (5) History of total vaginal hysterectomy (TVH) Status: Acute Current Visit: No Code(s): Z90.710 - Acquired absence of both cervix and uterus Type of Wound Date of Service: 12/28/19 Chief Complaint: Pressure injury back status post recent surgery for total hysterectomy History of Wound: This is a 54-year-old white female who presents to the wound healing center today with complaint of pressure injury to her low back. This occurred per patient report after her surgery for pelvic reconstruction and total hysterectomy on 11/28/2019. She states that it occurred due to the way she was positioned on the operating table. She notes that her surgery went well, however she did develop this pressure injury and has been placed on Bactrim and utilizing a dressing over top of the injury. She states that she has been trying to keep pressure off the injury. She denies any systemic signs of infection at this time. She denies any fever, chills, purulent drainage, or any other acute concerns. She denies any other aggravating relieving factors. All other systems reviewed and negative with exception of those listed above. Progress of Wound: 12/21/19-pressure ulcer appears stable, less amount of slough and eschar today, doing well with santyl, no new concerns. 12/28/19-pressure ulcer appears stable, less amount of slough , doing well with santyl, no new concerns. - Physical Exam Vital Signs Temp Pulse Resp BP Pulse Ox 96.9 F L 73 16 123/77 H 98 12/28/19 13:03 12/28/19 13:03 12/28/19 13:03 12/28/19 13:03 12/14/19 12:43 General: Alert, Oriented x3, Cooperative, No apparent distress HEENT: Atraumatic Oral: Moist Mucosa Lungs: Clear to auscultation Cardiovascular: Regular rate Abdomen: Soft, Non Tender Extremities: No clubbing, No cyanosis, No edema Skin: Ulcer/ Wound - See nursing documentation, slough devitalized tissue present no signs of obvious infection at this time Wound Measurements and Assessment WC - Nurse 1 - General Ulcer Measurement Start: 12/14/19 12:43 Freq: Status: Active Protocol: Activity Type Activity Date Activity User E-Sign Co-Sign Detail Recorded Client Recorded Date Recorded By Document 12/28/19 13:03 BMF [id number] 12/28/19 13:07 BMF 12/28/19 13:03 Wound Center Nurse 1 [Ulcer Assessment] #1- LUMBAR -Combined with other wound No -Current Size (cm) - Length 1.2 -Current Size (cm) - Width 3.5 -Current Size (cm) - Depth 0.2 -Total Square Cm 4.20 -Photo Taken No -Epithelialization None Present -Tunneling No -Undermining/Tunneling No -Circular Undermining No -Exudate Amt Small -Exudate Type Serous -Wound Margin Indistinct, Non -Visible -Granulation Amt Small (1-33%) -Granulation Quality Bieber -Slough/Fibrin Yes -Necrosis Amt Large (67-100%) -Necrotic Tissue Type Adherent Slough -Texture (Genoveva-wound Skin Appearance) Assessed, Scarring -Moisture (Genoveva-wound Skin Appearance Assessed ) -Color (Genoveva-wound Skin Appearance) Assessed, Erythema -Temperature (Genoveva-wound Skin No Abnormality Appearance) (Pt Warm) -Tenderness on Palpation (Genoveva-wound Yes Skin Appearance) -Ulcer Cleansing Rinsed/ Irrigated with Saline -Foul Odor after Cleansing No -Anesthetic Used 5% Lidocaine Gel WC - Nurse 2 - General Ulcer CM Notes Start: 12/26/19 20:08 Freq: Status: Active Protocol: Activity Type Activity Date Activity User E-Sign Co-Sign Detail Recorded Client Recorded Date Recorded By Document 12/28/19 13:22 MW [id number] 12/28/19 13:26 MW 12/28/19 13:22 Wound Center Nurse 2 [Procedure/Treatment] -Time 13:22 -Correct Patient Yes -Correct Side, Site, Position Yes -Correct Procedure Yes -Procedure Performed Yes -Type of Procedure Debridement -Clinical Debridement Subcutaneous -Tissue Removed Subcutaneous -Post Debridement (cm) - Length 1.4 -Post Debridement (cm) - Width 3.6 -Post Debridement (cm) - Depth 0.2 -Total Square (Post) (cm) 5.04 -Area of Debridement (cm) - Length 1.4 -Area of Debridement (cm) - Width 3.6 -Total Square (Area) (cm) 5.04 -Tunneling No -Undermining/Tunneling No -Circular Undermining No -Ulcer Cleansing Rinsed/ Irrigated with Saline -Foul Odor after Cleansing No -Bioengineered Tissue No -Bleeding Controlled with Pressure -Offloading No -Debridement - Subq, 1st 20sq cm Yes [See Physician Procedure note for Specifics] Pain Scale: 0-10 Numeric [Pain] -Is Patient Pain Free? Yes - Nurse 3 - General Ulcer D/C NN Start: 12/26/19 20:08 Freq: Status: Active Protocol: Activity Type Activity Date Activity User E-Sign Co-Sign Detail Recorded Client Recorded Date Recorded By Document 12/28/19 13:44 [facility] [id number] 12/28/19 13:47 [facility] 12/28/19 13:44 Wound Care Nurse 3 [Wound Dressing] #1- LUMBAR -Ulcer Cleansing Rinsed/ Irrigated with Saline -Foul Odor after Cleansing No -Primary Dressing Applied Other -Other Dressing santyl -Primary Dressing Covered/Secured Dry Gauze, with Secured with Tape,Other -Other Covering moistened gauze [Post Procedure Tolerated] -Treatment Response Procedure Tolerated Well Pain Scale: 0-10 Numeric [Pain] -Is Patient Pain Free? Yes - Visit Discharge [Visit Discharge Information] -Discharge Condition Stable -Ambulatory Status Ambulatory -Transportation Private Auto -Accompanied by Musculoskeletal: No Tenderness to Palpation of Joints or Extremities Neurological: Neuro grossly intact Psych/Mental Status: Normal Affect, Appropriate, Alert and oriented to time, place, person, mood and affect Debridement Note Post-Debridement Measurements/Treatment - Nurse 2 - General Ulcer CM Notes Start: 12/26/19 20:08 Freq: Status: Active Protocol: Activity Type Activity Date Activity User E-Sign Co-Sign Detail Recorded Client Recorded Date Recorded By Document 12/28/19 13:22 [id number] 12/28/19 13:26 MW 12/28/19 13:22 Wound Center Nurse 2 #1- LUMBAR -Time 13:22 -Correct Patient Yes -Correct Side, Site, Position Yes -Correct Procedure Yes -Procedure Performed Yes -Type of Procedure Debridement -Clinical Debridement Subcutaneous -Tissue Removed Subcutaneous -Post Debridement (cm) - Length 1.4 -Post Debridement (cm) - Width 3.6 -Post Debridement (cm) - Depth 0.2 -Total Square (Post) (cm) 5.04 -Area of Debridement (cm) - Length 1.4 -Area of Debridement (cm) - Width 3.6 -Total Square (Area) (cm) 5.04 -Tunneling No -Undermining/Tunneling No -Circular Undermining No -Ulcer Cleansing Rinsed/ Irrigated with Saline -Foul Odor after Cleansing No -Bioengineered Tissue No -Bleeding Controlled with Pressure -Offloading No -Debridement - Subq, 1st 20sq cm Yes Pain Scale: 0-10 Numeric Is Patient Pain Free? Yes - Nurse 3 - General Ulcer D/C NN Start: 12/26/19 20:08 Freq: Status: Active Protocol: Activity Type Activity Date Activity User E-Sign Co-Sign Detail Recorded Client Recorded Date Recorded By Document 12/28/19 13:44 [facility] [id number] 12/28/19 13:47 [facility] 12/28/19 13:44 Wound Care Nurse 3 #1- LUMBAR -Ulcer Cleansing Rinsed/ Irrigated with Saline -Foul Odor after Cleansing No -Primary Dressing Applied Other -Other Dressing santyl -Primary Dressing Covered/Secured with Dry Gauze, Secured with Tape,Other -Other Covering moistened gauze Treatment Response Procedure Tolerated Well Pain Scale: 0-10 Numeric Is Patient Pain Free? Yes - Visit Discharge Discharge Condition Stable Ambulatory Status Ambulatory Transportation Private Auto Accompanied by Wound debrided: Stage III pressure injury of low back Type of Debridement: Excisional debridement Anesthesia Used: 5% Lidocaine Gel Depth: in the subcutaneous layer Percentage of wound debrided: 100 Instrument Used: 5mm curette Tissue Removed: Slough and devitalized tissue Severity: Fat Layer Exposed Amount of bleeding with debridement: Mild Bleeding Controlled with: Pressure Patient tolerated procedure well Assessment/Plan Active Problems (Last Reviewed 12/13/19 @ 11:53 by Rebecca Lorenz) Pressure injury of lower back, stage 3 (Acute) Assessment: See above diagnoses Plan: The patient was seen and examined at the wound center today and was updated on the plan of care. A subcutaneous debridement was performed today. The patient tolerated the procedure well. The patients wound care will consist of: Application of Santyl and moistened gauze change daily. Hold wound cultures at this time and hold off on baseline blood work. Most recent blood work was reviewed. patient educated on the importance of diet on wound healing and instructed to increase protein and vitamin C intake. Patient verbalized understanding. Patient will follow up at wound healing center in one week or sooner if needed. Discussed with patient red flag signs symptoms requiring urgent medical attention. Patient verbalized understanding. Discussed specific signs of infection. This note was generated with [employer] dictation software. It may contain incorrect words, spelling, and punctuation that were not noted in checking the note before signing. [id number]: [id number] Marlin subq tissue 20 sq cm/<
[2020-01-04 12:59] VITALS: BP 137/84; PULSE 74; RESP 18; TEMP 36.1; BMI 26.9
--- NOTE | 2020-01-04 16:57 | PN.PCM_ITS ---
(1) Pressure injury of lower back, stage 3 Status: Acute Current Visit: Yes Code(s): L89.103 - Pressure ulcer of unspecified part of back, stage 3 (2) Pressure injury of back, unstageable Status: Acute Current Visit: No Code(s): L89.100 - Pressure ulcer of unspecified part of back, unstageable (3) Delayed wound healing Status: Acute Current Visit: No Code(s): T14.8XXD - Other injury of unspecified body region, subsequent encounter (4) H/O unilateral salpingectomy Status: Acute Current Visit: No Code(s): Z90.79 - Acquired absence of other genital organ(s) (5) History of total vaginal hysterectomy (TVH) Status: Acute Current Visit: No Code(s): Z90.710 - Acquired absence of both cervix and uterus Type of Wound Date of Service: 01/04/20 Chief Complaint: Pressure injury back status post recent surgery for total hysterectomy History of Wound: This is a 54-year-old white female who presents to the wound healing center today with complaint of pressure injury to her low back. This occurred per patient report after her surgery for pelvic reconstruction and total hysterectomy on 11/28/2019. She states that it occurred due to the way she was positioned on the operating table. She notes that her surgery went well, however she did develop this pressure injury and has been placed on Bactrim and utilizing a dressing over top of the injury. She states that she has been trying to keep pressure off the injury. She denies any systemic signs of infection at this time. She denies any fever, chills, purulent drainage, or any other acute concerns. She denies any other aggravating relieving factors. All other systems reviewed and negative with exception of those listed above. Progress of Wound: 12/21/19-pressure ulcer appears stable, less amount of slough and eschar today, doing well with santyl, no new concerns. 12/28/19-pressure ulcer appears stable, less amount of slough , doing well with santyl, no new concerns. 01/04/20-pressure ulcer appears stable, less amount of slough , doing well with santyl, no new concerns. - Physical Exam Vital Signs Temp Pulse Resp BP Pulse Ox 97 F L 74 18 137/84 H 98 01/04/20 12:59 01/04/20 12:59 01/04/20 12:59 01/04/20 12:59 12/14/19 12:43 General: Alert, Oriented x3, Cooperative, No apparent distress HEENT: Atraumatic Oral: Moist Mucosa Lungs: Clear to auscultation Cardiovascular: Regular rate Abdomen: Soft, Non Tender Extremities: No clubbing, No cyanosis, No edema Skin: Ulcer/ Wound - See nursing documentation, slough and devitalized tissue, no signs of infection at this time. Wound Measurements and Assessment WC - Nurse 1 - General Ulcer Measurement Start: 12/14/19 12:43 Freq: Status: Active Protocol: Activity Type Activity Date Activity User E-Sign Co-Sign Detail Recorded Client Recorded Date Recorded By Document 01/04/20 12:59 RB [id number] 01/04/20 13:02 RB 01/04/20 12:59 Wound Center Nurse 1 [Ulcer Assessment] #1- LUMBAR -Combined with other wound No -Current Size (cm) - Length 1.7 -Current Size (cm) - Width 3.4 -Current Size (cm) - Depth 0.2 -Total Square Cm 5.78 -Tunneling No -Undermining/Tunneling No -Circular Undermining No -Exudate Amt Small -Exudate Type Serosanguineous -Wound Margin Distinct, Outline Attached -Granulation Amt Medium (34-66%) -Granulation Quality Nicut -Slough/Fibrin Yes -Necrosis Amt Small (1-33%) -Necrotic Tissue Type Adherent Slough -Structure Exposed N/A -Texture (Genoveva-wound Skin Appearance) Assessed -Moisture (Genoveva-wound Skin Appearance Assessed ) -Color (Genoveva-wound Skin Appearance) Assessed -Temperature (Genoveva-wound Skin No Abnormality Appearance) (Pt Warm) -Tenderness on Palpation (Genoveva-wound No Skin Appearance) -Ulcer Cleansing Wound Cleanser -Foul Odor after Cleansing No -Anesthetic Used 4% Lidocaine Solution WC - Nurse 2 - General Ulcer CM Notes Start: 12/26/19 20:08 Freq: Status: Active Protocol: Activity Type Activity Date Activity User E-Sign Co-Sign Detail Recorded Client Recorded Date Recorded By Document 01/04/20 13:20 MW [id number] 01/04/20 13:24 MW 01/04/20 13:20 Wound Center Nurse 2 [Procedure/Treatment] -Time 13:21 -Correct Patient Yes -Correct Side, Site, Position Yes -Correct Procedure Yes -Procedure Performed Yes -Type of Procedure Debridement -Clinical Debridement Subcutaneous -Tissue Removed Subcutaneous -Post Debridement (cm) - Length 1.4 -Post Debridement (cm) - Width 3.2 -Post Debridement (cm) - Depth 0.1 -Total Square (Post) (cm) 4.48 -Area of Debridement (cm) - Length 1.4 -Area of Debridement (cm) - Width 3.2 -Total Square (Area) (cm) 4.48 -Tunneling No -Undermining/Tunneling No -Circular Undermining No -Wound/Ulcer Outcome Not Healed -Ulcer Cleansing Rinsed/ Irrigated with Saline -Foul Odor after Cleansing No -Bioengineered Tissue No -Bleeding Controlled with Pressure -Offloading No -Treatment Response Procedure Tolerated Well -Debridement - Subq, 1st 20sq cm Yes [See Physician Procedure note for Specifics] Pain Scale: 0-10 Numeric [Pain] -Is Patient Pain Free? Yes - Nurse 3 - General Ulcer D/C NN Start: 12/26/19 20:08 Freq: Status: Active Protocol: Activity Type Activity Date Activity User E-Sign Co-Sign Detail Recorded Client Recorded Date Recorded By Document 01/04/20 13:46 RB [id number] 01/04/20 13:47 RB 01/04/20 13:46 Wound Care Nurse 3 [Wound Dressing] #1- LUMBAR -Ulcer Cleansing Wound Cleanser -Primary Dressing Applied Promogran Francisco Matter -Primary Dressing Covered/Secured Dry Gauze,Other with -Other Covering francisco ,gauze -Promogran Francisco Matter 2 [Post Procedure Tolerated] -Treatment Response Procedure Tolerated Well Pain Scale: 0-10 Numeric [Pain] -Is Patient Pain Free? Yes - Visit Discharge [Visit Discharge Information] -Discharge Condition Stable -Ambulatory Status Ambulatory -Transportation Private Auto -Medication Reconcilliation completed No & provided to patient/care provider -Clinical Summary of Care Provided Yes Neurological: Neuro grossly intact Psych/Mental Status: Normal Affect, Appropriate, Alert and oriented to time, place, person, mood and affect Debridement Note Post-Debridement Measurements/Treatment VALENTINA - Nurse 2 - General Ulcer CM Notes Start: 12/26/19 20:08 Freq: Status: Active Protocol: Activity Type Activity Date Activity User E-Sign Co-Sign Detail Recorded Client Recorded Date Recorded By Document 12/28/19 13:22 MW [id number] 12/28/19 13:26 MW Document 01/04/20 13:20 MW [id number] 01/04/20 13:24 MW 12/28/19 01/04/20 13:22 13:20 Wound Center Nurse 2 #1- LUMBAR -Time 13:22 13:21 -Correct Patient Yes Yes -Correct Side, Site, Position Yes Yes -Correct Procedure Yes Yes -Procedure Performed Yes Yes -Type of Procedure Debridement Debridement -Clinical Debridement Subcutaneous Subcutaneous -Tissue Removed Subcutaneous Subcutaneous -Post Debridement (cm) - Length 1.4 1.4 -Post Debridement (cm) - Width 3.6 3.2 -Post Debridement (cm) - Depth 0.2 0.1 -Total Square (Post) (cm) 5.04 4.48 -Area of Debridement (cm) - Length 1.4 1.4 -Area of Debridement (cm) - Width 3.6 3.2 -Total Square (Area) (cm) 5.04 4.48 -Tunneling No No -Undermining/Tunneling No No -Circular Undermining No No -Wound/Ulcer Outcome Not Healed -Ulcer Cleansing Rinsed/ Rinsed/ Irrigated with Irrigated with Saline Saline -Foul Odor after Cleansing No No -Bioengineered Tissue No No -Bleeding Controlled with Pressure Pressure -Offloading No No -Treatment Response Procedure Tolerated Well -Debridement - Subq, 1st 20sq cm Yes Yes Pain Scale: 0-10 Numeric Is Patient Pain Free? Yes Yes WC - Nurse 3 - General Ulcer D/C NN Start: 12/26/19 20:08 Freq: Status: Active Protocol: Activity Type Activity Date Activity User E-Sign Co-Sign Detail Recorded Client Recorded Date Recorded By Document 12/28/19 13:44 [facility] [id number] 12/28/19 13:47 BM Document 01/04/20 13:46 RB [id number] 01/04/20 13:47 RB 12/28/19 01/04/20 13:44 13:46 Wound Care Nurse 3 #1- LUMBAR -Ulcer Cleansing Rinsed/ Wound Cleanser Irrigated with Saline -Foul Odor after Cleansing No -Primary Dressing Applied Other -Primary Dressing Applied Promogran Francisco Matter -Other Dressing santyl -Primary Dressing Covered/Secured with Dry Gauze, Dry Gauze,Other Secured with Tape,Other -Other Covering moistened gauze francisco ,gauze -Promogran Francisco Matter 2 Treatment Response Procedure Procedure Tolerated Well Tolerated Well Pain Scale: 0-10 Numeric Is Patient Pain Free? Yes Yes WC - Visit Discharge Discharge Condition Stable Stable Ambulatory Status Ambulatory Ambulatory Transportation Private Auto Private Auto Accompanied by Medication Reconcilliation completed & No provided to patient/care provider Clinical Summary of Care Provided Yes Wound debrided: Stage III pressure injury of low back Type of Debridement: Excisional debridement Anesthesia Used: 5% Lidocaine Gel Depth: in the subcutaneous layer, to muscle Instrument Used: 3mm curette Tissue Removed: Slough and devitalized tissue Severity: Fat Layer Exposed Amount of bleeding with debridement: Mild Bleeding Controlled with: Pressure Assessment/Plan Active Problems (Last Reviewed 12/13/19 @ 11:53 by Rebecca Lorenz) Pressure injury of lower back, stage 3 (Acute) Assessment: See above diagnoses Plan: The patient was seen and examined at the wound center today and was updated on the plan of care. A subcutaneous debridement was performed today. The patient tolerated the procedure well. The patients wound care will consist of: Application of Francisco and cover with gauze change daily. Hold wound cultures at this time and hold off on baseline blood work. Most recent blood work was reviewed. patient educated on the importance of diet on wound healing and instructed to increase protein and vitamin C intake. Patient verbalized understanding. Patient will follow up at wound healing center in one week or sooner if needed. Discussed with patient red flag signs symptoms requiring urgent medical attention. Patient verbalized understanding. Discussed specific signs of infection. Given the delayed wound healing will apply for an advanced skin substitute as ulcer has been present greater than 4 weeks now. This note was generated with [employer] dictation software. It may contain incorrect words, spelling, and punctuation that were not noted in checking the note before signing. [id number]: [id number] Mariln subq tissue 20 sq cm/<
== END 2020-01-08 23:59 ==
LOC: WC 12:45
PROVIDERS: PCP Family Medicine; Visit Provider Nurse Practitioner Family
DX: L89.103 Pressure ulcer of unspecified part of back, stage 3 (principal); Z90.79 Acquired absence of other genital organ(s); Z90.710 Acquired absence of both cervix and uterus
CPT/HCPCS: 11042

== ENCOUNTER → 2020-01-11 15:11 | Outpatient (CLI) | payer BC, SELFPAY ==
[2020-01-04 12:59] VITALS: BMI 26.9
[2020-01-11 15:44] LABS: Absolute Lymphocyte Count 2.25 X10^3/uL (0.83-4.51); Absolute Neutrophil Count 3.9 X10^3/uL (2.0-7.7); Basophil# 0.06 X10^3/uL; Basophil% 0.7 % (0-1); Eosinophil# 1.39 X10^3/uL; Eosinophils% 16.8 % (0-5); Hematocrit 43.6 % (37-47); Hemoglobin 14.4 g/dL (12.0-15.0); Lymphocyte # 2.25 X10^3/ul (4.0); Lymphocyte % 27.3 % (19-41); Mean Corpuscular Hgb 31.5 pg (27.0-32.0); Mean Corpuscular Volume 95.4 fL (81-99); Mean Platelet Vol. 9.3 fl (6.2-12.0); Monocyte# 0.63 X10^3/uL; Monocyte% 7.6 % (0-10); NRBC Flagged by Analyzer 0 % (0-5); Neutrophil % 47.4 % (47-70); Platelet Count 288 K/mm3 (150-450); RBC Distribution Width CV 12.4 % (11.6-14.6); RBC Distribution Width SD 42.7 fl (35.1-43.9); Red Blood Count 4.57 M/mm3 (4.2-5.4); White Blood Count 8.3 K/mm3 (4.4-11.0)
[2020-01-11 16:12] LABS: ALB/GLOB Ratio 1.1 RATIO (0.9-2.4); AST(SGOT) 26 U/L (15-37); Alanine Aminotransfer ALT/SGPT 32 U/L (13-56); Albumin, Serum 3.9 g/dL (3.2-5.0); Alkaline Phosphatase 111 U/L (45-117); Anion Gap 2 (5-15); BUN 17 mg/dL (7-18); BUN/Creat Ratio 23.2 RATIO (10-20); Calcium,Total 9.4 mg/dL (8.5-10.1); Chloride 107 mmol/L (98-107); Creatinine, Serum 0.73 mg/dL (0.55-1.02); EST Glomerular Filtration Rate 88 mL/min (>60); Est Glom Filt Rate - Afr Amer 106 mL/min (>60); Globulin 3.4 g/dL (2.2-4.2); Glucose 93 mg/dL (74-106); Potassium 3.9 mmol/L (3.5-5.1); Protein, Total 7.3 g/dL (6.4-8.2); Sodium Level 139 mmol/L (136-145)
== END ==
PROVIDERS: PCP Family Medicine; Referring Provider Obstetrics & Gynecology; Visit Provider Obstetrics & Gynecology
DX: R35.1 Nocturia (principal); R39.15 Urgency of urination; R14.0 Abdominal distension (gaseous); R19.7 Diarrhea, unspecified
CPT/HCPCS: 36415; 80053; 85025; 87493; 87506

== ENCOUNTER → 2020-01-12 14:35 | Outpatient (CLI) | payer BC, SELFPAY ==
[2020-01-04 12:59] VITALS: BMI 26.9
[2020-01-12 16:28] LABS: Anion Gap 7 (5-15); BUN 18 mg/dL (7-18); BUN/Creat Ratio 22.4 RATIO (10-20); Calcium,Total 9.1 mg/dL (8.5-10.1); Chloride 103 mmol/L (98-107); EST Glomerular Filtration Rate 79 mL/min (>60); Est Glom Filt Rate - Afr Amer 95 mL/min (>60); Glucose 96 mg/dL (74-106); Potassium 3.5 mmol/L (3.5-5.1); Sodium Level 139 mmol/L (136-145)
== END ==
PROVIDERS: PCP Family Medicine; Referring Provider Obstetrics & Gynecology; Visit Provider Obstetrics & Gynecology
DX: R14.0 Abdominal distension (gaseous) (principal); R19.7 Diarrhea, unspecified
CPT/HCPCS: 36415; 80048; 87086; 87088

== ENCOUNTER → 2020-01-16 14:12 | Outpatient (CLI) | payer BC, SELFPAY ==
[2020-01-04 12:59] VITALS: BMI 26.9
--- NOTE | 2020-01-16 14:12 | CT_ITS ---
STUDY: CT ABDOMEN AND PELVIS WITH CONTRAST REASON FOR EXAM: Female, 54 years old. DIARRHEA SINCE LAST WEDS. CRAMPING. NAUSEA. RADIATION DOSAGE (If Supplied By Facility): CTDIvol = ( 15.465 ) mGy, DLP = ( 843.27 ) mGycm TECHNIQUE: Transaxial images were obtained from the dome of the diaphragm to the symphysis pubis with oral contrast. Oral and amp; IV Readi-CAT and amp; 100mL Isovue-370 was administered. Sagittal and coronal images were reconstructed. Individualized dose optimization techniques were used for this CT. COMPARISON: None. FINDINGS: The visualized lung bases are unremarkable. The visualized portions of the heart are within normal limits. Multiple hepatic cysts. The largest cyst is in the anterior aspect of the left lower liver and measures 3.4 cm x 3.1 cm. Normal gallbladder and extrahepatic biliary system. Normal spleen. Normal pancreas. Normal bilateral adrenal glands. Normal right kidney. Normal left kidney. There is a small hiatal hernia. Normal small intestine. Normal colon. The appendix is visualized and appears normal. Normal abdominal aorta. Normal inferior vena cava. Normal retroperitoneum. Normal urinary bladder. There is absence of the uterus consistent with a prior hysterectomy. There is a small umbilical hernia containing fat. Levoscoliosis. Mild degree of degenerative changes of the lumbar spine. CT/Abdomen/Pelvis WITH Contrast IMPRESSION: Multiple hepatic cysts. Small hiatal hernia. Status post hysterectomy. Electronically Signed: Prabhu Landers, at 14:55 EDT , Service support ,
== END ==
PROVIDERS: PCP Family Medicine; Referring Provider Obstetrics & Gynecology; Visit Provider Obstetrics & Gynecology
DX: R14.0 Abdominal distension (gaseous) (principal); R19.7 Diarrhea, unspecified
CPT/HCPCS: 74177; Q9967

== ENCOUNTER → 2020-01-25 14:50 | Outpatient (CLI) | payer BC, SELFPAY ==
[2020-01-19 11:47] VITALS: BMI 26.9
[2020-01-25 13:06] VITALS: BMI 26.9
--- NOTE | 2020-01-25 14:50 | ECHOD_ITS ---
Reason For Study: DYSPNEA/SOB Procedure This was a 2D Doppler, Color Flow transthoracic echocardiogram. Exam performed in department. Left Ventricle Normal LV size. Left ventricular systolic function is normal. The estimated ejection fraction is 60 %. Stage 1 diastolic dysfunction. No regional wall motion abnormalities noted. Right Ventricle Normal RV size. Normal systolic function. Atria Normal left atrium. Normal right atrium. Bubble contrast study negative for right to left interatrial shunt. Tricuspid Valve Normal tricuspid valve. Great Vessels Normal aortic root. The pulmonary artery is normal size. Normal inferior vena cava. Pericardium/Pleural No pericardial effusion. Medication 22 gauge I.V. with prn adaptor inserted into right arm. Performed a rapid injection of agitated mix of 9 cc saline and 1cc air to assess for atrial septal defect. MMode/2D Measurements & Calculations LVIDd: 5.0 cm IVSd: 0.67 cm Ao root diam: 3.3 cm LVIDs: 3.4 cm LVPWd: 0.69 cm RVDd: 3.3 cm FS: 33.1 % LAV(MOD-bp): 43.6 ml SV(MOD-sp4): 59.4 ml LVAd ap4: 31.4 cm2 LAV(MOD-bp) Indexed: 21.8 ml/m2 EDV(MOD-sp4): 101.7 ml LAV(MOD-sp2): 46.4 ml EDV(sp4-el): 105.8 ml LAV(MOD-sp4): 38.4 ml LVAs ap4: 18.4 cm2 ESV(MOD-sp4): 42.3 ml ESV(sp4-el): 42.1 ml EF(MOD-sp4): 58.4 % EF(sp4-el): 60.2 % SV(sp4-el): 63.7 ml LA dimension(2D): 3.1 cm LA A4 area: 15.6 cm2 RA A4 area: 13.8 cm2 Time Measurements MV dec time: 0.27 sec Doppler Measurements & Calculations MV E max sukhdev: 65.4 cm/sec Lat Peak E' Sukhdev: 11.4 cm/sec Med Peak E' Sukhdev: 8.0 cm/sec MV A max sukhdev: 75.2 cm/sec E/E' lat: 5.7 E/E' med: 8.2 MV E/A: 0.87 Ao V2 max: 125.1 cm/sec LV V1 max: 105.6 cm/sec PA V2 max: 83.9 cm/sec Ao max P.3 mmHg LV V1 max P.5 mmHg PI end-d sukhdev: 92.0 cm/sec TR max sukhdev: 228.1 cm/sec TR max P.8 mmHg Interpretation Summary Normal LV size. Left ventricular systolic function is normal. The estimated ejection fraction is 60 %. Stage 1 diastolic dysfunction. Bubble contrast study negative for right to left interatrial shunt. Ordering Physician: Josiane Hannon/Josh Palacios Referring Physician: ALMA SALAS Performed By: Lisandra Mckeon RDCS
== END ==
PROVIDERS: PCP Family Medicine; Referring Provider Physician Assistant Medical; Visit Provider Physician Assistant Medical
DX: R06.02 Shortness of breath (principal)
CPT/HCPCS: 93306; A4216

== ENCOUNTER 2020-02-01 12:45 | Outpatient (RCR) | payer BC, SELFPAY ==
[2020-01-09 00:47] VITALS: BP 137/84; PULSE 74; RESP 18; TEMP 36.1; O2SAT 98
[2020-01-18 13:07] VITALS: BP 117/51; TEMP 36.1; BMI 26.9
--- NOTE | 2020-01-18 15:34 | PN.PCM_ITS ---
(1) Pressure injury of lower back, stage 3 Status: Acute Current Visit: Yes Code(s): L89.103 - Pressure ulcer of unspecified part of back, stage 3 (2) Delayed wound healing Status: Acute Current Visit: Yes Code(s): T14.8XXD - Other injury of unspecified body region, subsequent encounter (3) History of total vaginal hysterectomy (TVH) Status: Acute Current Visit: Yes Code(s): Z90.710 - Acquired absence of both cervix and uterus (4) Incomplete uterovaginal prolapse Status: Acute Current Visit: Yes Code(s): N81.2 - Incomplete uterovaginal prolapse Comment: plan TVH BS combo case with Tyra, Franco Type of Wound Date of Service: 01/18/20 Chief Complaint: Pressure injury back status post recent surgery for total hysterectomy History of Wound: This is a 54-year-old white female who presents to the wound healing center today with complaint of pressure injury to her low back. This occurred per patient report after her surgery for pelvic reconstruction and total hysterectomy on 11/28/2019. She states that it occurred due to the way she was positioned on the operating table. She notes that her surgery went well, however she did develop this pressure injury and has been placed on Bactrim and utilizing a dressing over top of the injury. She states that she has been t rying to keep pressure off the injury. She denies any systemic signs of infection at this time. She denies any fever, chills, purulent drainage, or any other acute concerns. She denies any other aggravating relieving factors. All other systems reviewed and negative with exception of those listed above. Progress of Wound: 12/21/19-pressure ulcer appears stable, less amount of slough and eschar today, doing well with santyl, no new concerns. 12/28/19-pressure ulcer appears stable, less amount of slough , doing well with santyl, no new concerns. 01/04/20-pressure ulcer appears stable, less amount of slough , doing well with santyl, no new concerns. 01/18/20-pressure ulcer appears doing well with francisco, no new concerns. - Physical Exam Vital Signs Temp Pulse Resp BP Pulse Ox 97.0 F L 74 18 117/51 L 98 01/18/20 13:07 01/09/20 00:47 01/09/20 00:47 01/18/20 13:07 01/09/20 00:47 General: Alert, Oriented x3, Cooperative, No apparent distress HEENT: Atraumatic Oral: Moist Mucosa Lungs: Clear to auscultation, Normal air movement Cardiovascular: Regular rate Abdomen: Soft, Non Tender Extremities: No clubbing, No cyanosis, No edema Skin: Ulcer/ Wound - see nursing documentation, slough and devitalized tissue, no signs of infection at this time Wound Measurements and Assessment WC - Nurse 1 - General Ulcer Measurement Start: 01/18/20 13:07 Freq: Status: Active Protocol: Activity Type Activity Date Activity User E-Sign Co-Sign Detail Recorded Client Recorded Date Recorded By Document 01/18/20 13:07 MT [id number] 01/18/20 13:20 MT 01/18/20 13:07 Wound Center Nurse 1 [Ulcer Assessment] #1- LUMBAR -Current Size (cm) - Length 0.6 -Current Size (cm) - Width 2.3 -Current Size (cm) - Depth 0.2 -Total Square Cm 1.38 -Exudate Amt Small -Exudate Type Serosanguineous -Wound Margin Flat & Intact -Granulation Amt Medium (34-66%) -Granulation Quality Pale,[place] -Necrosis Amt Medium (34-66%) -Necrotic Tissue Type Adherent Slough -Texture (Genoveva-wound Skin Appearance) Assessed -Moisture (Genoveva-wound Skin Appearance Assessed ) -Color (Genoveva-wound Skin Appearance) Assessed -Temperature (Genoveva-wound Skin No Abnormality Appearance) (Pt Warm) -Tenderness on Palpation (Genoveva-wound No Skin Appearance) -Ulcer Cleansing Rinsed/ Irrigated with Saline -Foul Odor after Cleansing No -Anesthetic Used 4% Lidocaine Solution [Edema Assessment] -Lower Limb Edema Present NA - Nurse 2 - General Ulcer CM Notes Start: 01/18/20 13:07 Freq: Status: Active Protocol: Activity Type Activity Date Activity User E-Sign Co-Sign Detail Recorded Client Recorded Date Recorded By Document 01/18/20 13:33 MW [id number] 01/18/20 13:35 MW 01/18/20 13:33 Wound Center Nurse 2 [Procedure/Treatment] #1- LUMBAR -Time 13:33 -Correct Patient Yes -Correct Side, Site, Position Yes -Correct Procedure Yes -Procedure Performed Yes -Type of Procedure Debridement -Clinical Debridement Subcutaneous -Tissue Removed Subcutaneous -Post Debridement (cm) - Length 0.9 -Post Debridement (cm) - Width 2.2 -Post Debridement (cm) - Depth 0.1 -Total Square (Post) (cm) 1.98 -Area of Debridement (cm) - Length 0.9 -Area of Debridement (cm) - Width 2.2 -Total Square (Area) (cm) 1.98 -Tunneling No -Undermining/Tunneling No -Circular Undermining No -Wound/Ulcer Outcome Not Healed -Ulcer Cleansing Rinsed/ Irrigated with Saline -Foul Odor after Cleansing No -Bioengineered Tissue No -Bleeding Controlled with Pressure -Offloading No -Debridement - Subq, 1st 20sq cm Yes [See Physician Procedure note for Specifics] Pain Scale: 0-10 Numeric [Pain] -Is Patient Pain Free? Yes - Nurse 3 - General Ulcer D/C NN Start: 01/18/20 13:07 Freq: Status: Active Protocol: Activity Type Activity Date Activity User E-Sign Co-Sign Detail Recorded Client Recorded Date Recorded By Document 01/18/20 13:45 [facility] [id number] 01/18/20 13:46 [facility] 01/18/20 13:45 Wound Care Nurse 3 [Wound Dressing] #1- LUMBAR -Ulcer Cleansing Rinsed/ Irrigated with Saline -Foul Odor after Cleansing No -Primary Dressing Applied Promogran Francisco Matter -Primary Dressing Covered/Secured Dry Gauze, with Secured with Tape -Promogran Francisco Matter 1 [Post Procedure Tolerated] -Treatment Response Procedure Tolerated Well Pain Scale: 0-10 Numeric [Pain] -Is Patient Pain Free? Yes - Visit Discharge [Visit Discharge Information] -Discharge Condition Stable -Ambulatory Status Ambulatory -Transportation Private Auto -Accompanied by Neurological: Neuro grossly intact Psych/Mental Status: Normal Affect, Appropriate, Alert and oriented to time, place, person, mood and affect Debridement Note Post-Debridement Measurements/Treatment - Nurse 2 - General Ulcer CM Notes Start: 01/18/20 13:07 Freq: Status: Active Protocol: Activity Type Activity Date Activity User E-Sign Co-Sign Detail Recorded Client Recorded Date Recorded By Document 01/18/20 13:33 [id number] 01/18/20 13:35 MW 01/18/20 13:33 Wound Center Nurse 2 #1- LUMBAR -Time 13:33 -Correct Patient Yes -Correct Side, Site, Position Yes -Correct Procedure Yes -Procedure Performed Yes -Type of Procedure Debridement -Clinical Debridement Subcutaneous -Tissue Removed Subcutaneous -Post Debridement (cm) - Length 0.9 -Post Debridement (cm) - Width 2.2 -Post Debridement (cm) - Depth 0.1 -Total Square (Post) (cm) 1.98 -Area of Debridement (cm) - Length 0.9 -Area of Debridement (cm) - Width 2.2 -Total Square (Area) (cm) 1.98 -Tunneling No -Undermining/Tunneling No -Circular Undermining No -Wound/Ulcer Outcome Not Healed -Ulcer Cleansing Rinsed/ Irrigated with Saline -Foul Odor after Cleansing No -Bioengineered Tissue No -Bleeding Controlled with Pressure -Offloading No -Debridement - Subq, 1st 20sq cm Yes Pain Scale: 0-10 Numeric Is Patient Pain Free? Yes - Nurse 3 - General Ulcer D/C NN Start: 01/18/20 13:07 Freq: Status: Active Protocol: Activity Type Activity Date Activity User E-Sign Co-Sign Detail Recorded Client Recorded Date Recorded By Document 01/18/20 13:45 [facility] [id number] 01/18/20 13:46 [facility] 01/18/20 13:45 Wound Care Nurse 3 #1- LUMBAR -Ulcer Cleansing Rinsed/ Irrigated with Saline -Foul Odor after Cleansing No -Primary Dressing Applied Promogran Francisco Matter -Primary Dressing Covered/Secured with Dry Gauze, Secured with Tape -Promogran Francisco Matter 1 Treatment Response Procedure Tolerated Well Pain Scale: 0-10 Numeric Is Patient Pain Free? Yes - Visit Discharge Discharge Condition Stable Ambulatory Status Ambulatory Transportation Private Auto Accompanied by Wound debrided: Pressure ulcer of low back stage III Type of Debridement: Excisional debridement Anesthesia Used: 5% Lidocaine Gel Depth: in the subcutaneous layer Percentage of wound debrided: 100 Instrument Used: 5mm curette Tissue Removed: Slough and devitalized tissue Severity: Fat Layer Exposed Amount of bleeding with debridement: Mild Bleeding Controlled with: Pressure, Compression and gauze Patient tolerated procedure well Assessment/Plan Active Problems (Last Reviewed 12/13/19 @ 11:53 by Rebecca Lorenz) Delayed wound healing (Acute) Pressure injury of lower back, stage 3 (Acute) History of total vaginal hysterectomy (TVH) (Acute ~11/2019) Incomplete uterovaginal prolapse (Acute) plan TVH BS combo case with Tyra, Franco Assessment: See above diagnoses Plan: The patient was seen and examined at the wound center today and was updated on the plan of care. A subcutaneous debridement was performed today. The patient tolerated the procedure well. The patients wound care will consist of: Application of Francisco and cover with gauze change daily. Hold wound cultures at this time and hold off on baseline blood work. Most recent blood work was reviewed. patient educated on the importance of diet on wound healing and instructed to increase protein and vitamin C intake. Patient verbalized understanding. Patient will follow up at wound healing center in one week or sooner if needed. Discussed with patient red flag signs symptoms requiring urgent medical attention. Patient verbalized understanding. Discussed specific signs of infection. Given the delayed wound healing will apply for an advanced skin substitute as ulcer has been present greater than 4 weeks now. This note was generated with [email or web address] dictation software. It may contain incorrect words, spelling, and punctuation that were not noted in checking the note before signing. [id number]: [id number] Marlin subq tissue 20 sq cm/<
[2020-01-25 13:06] VITALS: BP 134/71; PULSE 57; RESP 18; TEMP 36.2; BMI 26.9
--- NOTE | 2020-01-25 13:43 | PCM.WC.PN ---
(1) Pressure injury of lower back, stage 3 Status: Acute Current Visit: Yes Code(s): L89.103 - Pressure ulcer of unspecified part of back, stage 3 (2) Delayed wound healing Status: Acute Current Visit: Yes Code(s): T14.8XXD - Other injury of unspecified body region, subsequent encounter (3) History of total vaginal hysterectomy (TVH) Status: Acute Current Visit: Yes Code(s): Z90.710 - Acquired absence of both cervix and uterus (4) Incomplete uterovaginal prolapse Status: Acute Current Visit: Yes Code(s): N81.2 - Incomplete uterovaginal prolapse Comment: plan TVH BS combo case with Tyra, Franco Type of Wound Date of Service: 01/25/20 Chief Complaint: Pressure injury back status post recent surgery for total hysterectomy History of Wound: This is a 54-year-old white female who presents to the wound healing center today with complaint of pressure injury to her low back. This occurred per patient report after her surgery for pelvic reconstruction and total hysterectomy on 11/28/2019. She states that it occurred due to the way she was positioned on the operating table. She notes that her surgery went well, however she did develop this pressure injury and has been placed on Bactrim and utilizing a dressing over top of the injury. She states that she has been trying to keep pressure off the injury. She denies any systemic signs of infection at this time. She denies any fever, chills, purulent drainage, or any other acute concerns. She denies any other aggravating relieving factors. All other systems reviewed and negative with exception of those listed above. Progress of Wound: 12/21/19-pressure ulcer appears stable, less amount of slough and eschar today, doing well with santyl, no new concerns. 12/28/19-pressure ulcer appears stable, less amount of slough , doing well with santyl, no new concerns. 01/04/20-pressure ulcer appears stable, less amount of slough , doing well with santyl, no new concerns. 01/18/20-pressure ulcer appears doing well with francisco, no new concerns. 01/25/20-pressure ulcer appears doing well with francisco, no new concerns. - Physical Exam Vital Signs Temp Pulse Resp BP Pulse Ox 97.1 F L 57 L 18 134/71 H 98 01/25/20 13:06 01/25/20 13:06 01/25/20 13:06 01/25/20 13:06 01/09/20 00:47 General: Alert, Oriented x3, Cooperative, No apparent distress HEENT: Atraumatic Oral: Moist Mucosa Neck: Supple Lungs: Clear to auscultation, Normal air movement Cardiovascular: Regular rate, Regular Rhythm Abdomen: Soft, Non Tender Extremities: No clubbing, No cyanosis, No edema Skin: Ulcer/ Wound Wound Measurements and Assessment WC - Nurse 1 - General Ulcer Measurement Start: 01/18/20 13:07 Freq: Status: Active Protocol: Activity Type Activity Date Activity User E-Sign Co-Sign Detail Recorded Client Recorded Date Recorded By Document 01/25/20 13:06 RB [id number] 01/25/20 13:07 RB 01/25/20 13:06 Wound Center Nurse 1 [Ulcer Assessment] #1- LUMBAR -Combined with other wound No -Current Size (cm) - Length 0.4 -Current Size (cm) - Width 1.6 -Current Size (cm) - Depth 0.2 -Total Square Cm 0.64 -Tunneling No -Undermining/Tunneling No -Circular Undermining No -Exudate Amt Small -Exudate Type Serosanguineous -Wound Margin Thickened & Rolled Under -Granulation Amt Medium (34-66%) -Granulation Quality [place] -Slough/Fibrin Yes -Necrosis Amt Small (1-33%) -Necrotic Tissue Type Adherent Slough -Structure Exposed N/A -Texture (Genoveva-wound Skin Appearance) Assessed, Scarring -Moisture (Genoveva-wound Skin Appearance Assessed ) -Color (Genoveva-wound Skin Appearance) Assessed -Temperature (Genoveva-wound Skin No Abnormality Appearance) (Pt Warm) -Tenderness on Palpation (Genoveva-wound No Skin Appearance) -Ulcer Cleansing Wound Cleanser -Foul Odor after Cleansing No -Anesthetic Used 4% Lidocaine Solution WC - Nurse 2 - General Ulcer CM Notes Start: 01/18/20 13:07 Freq: Status: Active Protocol: Activity Type Activity Date Activity User E-Sign Co-Sign Detail Recorded Client Recorded Date Recorded By Document 01/25/20 13:23 MW [id number] 01/25/20 13:26 MW 01/25/20 13:23 Wound Center Nurse 2 [Procedure/Treatment] -Time 13:23 -Correct Patient Yes -Correct Side, Site, Position Yes -Correct Procedure Yes -Procedure Performed Yes -Type of Procedure Debridement -Clinical Debridement Subcutaneous -Tissue Removed Subcutaneous -Post Debridement (cm) - Length 0.4 -Post Debridement (cm) - Width 2.3 -Post Debridement (cm) - Depth 0.1 -Total Square (Post) (cm) 0.92 -Area of Debridement (cm) - Length 0.4 -Area of Debridement (cm) - Width 2.3 -Total Square (Area) (cm) 0.92 -Tunneling No -Undermining/Tunneling No -Circular Undermining No -Wound/Ulcer Outcome Not Healed -Ulcer Cleansing Rinsed/ Irrigated with Saline -Foul Odor after Cleansing No -Bioengineered Tissue No -Bleeding Controlled with Pressure -Offloading No -Debridement - Subq, 1st 20sq cm Yes [See Physician Procedure note for Specifics] Pain Scale: 0-10 Numeric [Pain] -Is Patient Pain Free? Yes - Nurse 3 - General Ulcer D/C NN Start: 01/18/20 13:07 Freq: Status: Active Protocol: Activity Type Activity Date Activity User E-Sign Co-Sign Detail Recorded Client Recorded Date Recorded By Document 01/25/20 13:31 [facility] [id number] 01/25/20 13:31 [facility] 01/25/20 13:31 Wound Care Nurse 3 [Wound Dressing] #1- LUMBAR -Ulcer Cleansing Rinsed/ Irrigated with Saline -Foul Odor after Cleansing No -Primary Dressing Applied Promogran Francisco Matter -Primary Dressing Covered/Secured Dry Gauze, with Secured with Tape -Promogran Francisco Matter 1 [Post Procedure Tolerated] -Treatment Response Procedure Tolerated Well Pain Scale: 0-10 Numeric [Pain] -Is Patient Pain Free? Yes - Visit Discharge [Visit Discharge Information] -Discharge Condition Stable -Ambulatory Status Ambulatory -Transportation Private Auto Neurological: Neuro grossly intact Psych/Mental Status: Normal Affect, Appropriate, Alert and oriented to time, place, person, mood and affect - See nursing documentation, slough and devitalized tissue present, no signs of infection at this time. Debridement Note Post-Debridement Measurements/Treatment WC - Nurse 2 - General Ulcer CM Notes Start: 01/18/20 13:07 Freq: Status: Active Protocol: Activity Type Activity Date Activity User E-Sign Co-Sign Detail Recorded Client Recorded Date Recorded By Document 01/18/20 13:33 MW [id number] 01/18/20 13:35 MW Document 01/25/20 13:23 MW [id number] 01/25/20 13:26 MW 01/18/20 01/25/20 13:33 13:23 Wound Center Nurse 2 #1- LUMBAR -Time 13:33 13:23 -Correct Patient Yes Yes -Correct Side, Site, Position Yes Yes -Correct Procedure Yes Yes -Procedure Performed Yes Yes -Type of Procedure Debridement Debridement -Clinical Debridement Subcutaneous Subcutaneous -Tissue Removed Subcutaneous Subcutaneous -Post Debridement (cm) - Length 0.9 0.4 -Post Debridement (cm) - Width 2.2 2.3 -Post Debridement (cm) - Depth 0.1 0.1 -Total Square (Post) (cm) 1.98 0.92 -Area of Debridement (cm) - Length 0.9 0.4 -Area of Debridement (cm) - Width 2.2 2.3 -Total Square (Area) (cm) 1.98 0.92 -Tunneling No No -Undermining/Tunneling No No -Circular Undermining No No -Wound/Ulcer Outcome Not Healed Not Healed -Ulcer Cleansing Rinsed/ Rinsed/ Irrigated with Irrigated with Saline Saline -Foul Odor after Cleansing No No -Bioengineered Tissue No No -Bleeding Controlled with Pressure Pressure -Offloading No No -Debridement - Subq, 1st 20sq cm Yes Yes Pain Scale: 0-10 Numeric Is Patient Pain Free? Yes Yes WC - Nurse 3 - General Ulcer D/C NN Start: 01/18/20 13:07 Freq: Status: Active Protocol: Activity Type Activity Date Activity User E-Sign Co-Sign Detail Recorded Client Recorded Date Recorded By Document 01/18/20 13:45 [facility] [id number] 01/18/20 13:46 [facility] Document 01/25/20 13:31 [facility] [id number] 01/25/20 13:31 [facility] 01/18/20 01/25/20 13:45 13:31 Wound Care Nurse 3 #1- LUMBAR -Ulcer Cleansing Rinsed/ Rinsed/ Irrigated with Irrigated with Saline Saline -Foul Odor after Cleansing No No -Primary Dressing Applied Promogran Promogran Francisco Matter Francisco Matter -Primary Dressing Covered/Secured with Dry Gauze, Dry Gauze, Secured with Secured with Tape Tape -Promogran Francisco Matter 1 1 Treatment Response Procedure Procedure Tolerated Well Tolerated Well Pain Scale: 0-10 Numeric Is Patient Pain Free? Yes Yes WC - Visit Discharge Discharge Condition Stable Stable Ambulatory Status Ambulatory Ambulatory Transportation Private Auto Private Auto Accompanied by Wound debrided: Stage III pressure injury of lower back Type of Debridement: Excisional debridement Anesthesia Used: 5% Lidocaine Gel Depth: in the subcutaneous layer Percentage of wound debrided: 100 Instrument Used: 3mm curette Tissue Removed: Slough and devitalized tissue Severity: Fat Layer Exposed Amount of bleeding with debridement: Mild Bleeding Controlled with: Pressure Patient tolerated procedure well Assessment/Plan Active Problems (Last Reviewed 01/19/20 @ 10:56 by Rebecca Lorenz) Delayed wound healing (Acute) Pressure injury of lower back, stage 3 (Acute) History of total vaginal hysterectomy (TVH) (Acute ~11/2019) Incomplete uterovaginal prolapse (Acute) plan TVH BS combo case with gracie Mary Assessment: See above diagnoses Plan: The patient was seen and examined at the wound center today and was updated on the plan of care. A subcutaneous debridement was performed today. The patient tolerated the procedure well. The patients wound care will consist of: Application of Francisco and cover with gauze change daily. Hold wound cultures at this time and hold off on baseline blood work. Most recent blood work was reviewed. patient educated on the importance of diet on wound healing and instructed to increase protein and vitamin C intake. Patient verbalized understanding. Patient will follow up at wound healing center in one week or sooner if needed. Discussed with patient red flag signs symptoms requiring urgent medical attention. Patient verbalized understanding. Discussed specific signs of infection. Given the delayed wound healing will apply for an advanced skin substitute as ulcer has been present greater than 4 weeks now. This note was generated with [employer] dictation software. It may contain incorrect words, spelling, and punctuation that were not noted in checking the note before signing. [id number]: [id number] Marlin subq tissue 20 sq cm/<
[2020-02-01 12:48] VITALS: BP 141/83; PULSE 60; RESP 16; TEMP 36.6; BMI 26.9
[2020-02-01 13:23] VITALS: RESP 16
--- NOTE | 2020-02-01 16:06 | PN.PCM_ITS ---
(1) Pressure injury of lower back, stage 3 Status: Acute Current Visit: Yes Code(s): L89.103 - Pressure ulcer of unspecified part of back, stage 3 (2) Delayed wound healing Status: Acute Current Visit: Yes Code(s): T14.8XXD - Other injury of unspecified body region, subsequent encounter (3) History of total vaginal hysterectomy (TVH) Status: Acute Current Visit: Yes Code(s): Z90.710 - Acquired absence of both cervix and uterus (4) Incomplete uterovaginal prolapse Status: Acute Current Visit: Yes Code(s): N81.2 - Incomplete uterovaginal prolapse Comment: plan TVH BS combo case with Tyra, Franco Type of Wound Date of Service: 02/01/20 Chief Complaint: Pressure injury back status post recent surgery for total hysterectomy History of Wound: This is a 54-year-old white female who presents to the wound healing center today with complaint of pressure injury to her low back. This occurred per patient report after her surgery for pelvic reconstruction and total hysterectomy on 11/28/2019. She states that it occurred due to the way she was positioned on the operating table. She notes that her surgery went well, however she did develop this pressure injury and has been placed on Bactrim and utilizing a dressing over top of the injury. She states that she has been t rying to keep pressure off the injury. She denies any systemic signs of infection at this time. She denies any fever, chills, purulent drainage, or any other acute concerns. She denies any other aggravating relieving factors. All other systems reviewed and negative with exception of those listed above. Progress of Wound: 12/21/19-pressure ulcer appears stable, less amount of slough and eschar today, doing well with santyl, no new concerns. 12/28/19-pressure ulcer appears stable, less amount of slough , doing well with santyl, no new concerns. 01/04/20-pressure ulcer appears stable, less amount of slough , doing well with santyl, no new concerns. 01/18/20-pressure ulcer appears doing well with francisco, no new concerns. 01/25/20-pressure ulcer appears doing well with francisco, no new concerns. 02/01/20-pressure ulcer appears doing well with francisco, no new concerns. - Physical Exam Vital Signs Temp Pulse Resp BP Pulse Ox 97.8 F 60 16 141/83 H 98 02/01/20 12:48 02/01/20 12:48 02/01/20 13:23 02/01/20 12:48 01/09/20 00:47 General: Alert, Oriented x3, Cooperative, No apparent distress HEENT: Atraumatic Oral: Moist Mucosa Lungs: Clear to auscultation, Normal air movement Cardiovascular: Regular rate, Regular Rhythm Abdomen: Soft, Non Tender Extremities: No clubbing, No cyanosis Skin: Ulcer/ Wound - See nursing documentation, slough and devitalized tissue present, no signs of infection at this time Wound Measurements and Assessment WC - Nurse 1 - General Ulcer Measurement Start: 01/18/20 13:07 Freq: Status: Active Protocol: Activity Type Activity Date Activity User E-Sign Co-Sign Detail Recorded Client Recorded Date Recorded By Document 02/01/20 12:48 BM [id number] 02/01/20 12:52 BMF 02/01/20 12:48 Wound Center Nurse 1 [Ulcer Assessment] #1- LUMBAR -Combined with other wound No -Current Size (cm) - Length 0.3 -Current Size (cm) - Width 1.4 -Current Size (cm) - Depth 0.1 -Total Square Cm 0.42 -Photo Taken No -Epithelialization Medium 34-66% -Tunneling No -Undermining/Tunneling No -Circular Undermining No -Exudate Amt Small -Exudate Type Serosanguineous -Wound Margin Distinct, Outline Attached -Granulation Amt Large (67-100%) -Granulation Quality Red -Slough/Fibrin No -Necrosis Amt None Present (0 %) -Texture (Genoveva-wound Skin Appearance) Assessed, Scarring -Moisture (Genoveva-wound Skin Appearance Assessed,Dry/ ) Scaly -Color (Genoveva-wound Skin Appearance) Assessed -Temperature (Genoveva-wound Skin No Abnormality Appearance) (Pt Warm) -Tenderness on Palpation (Genoveva-wound No Skin Appearance) -Ulcer Cleansing Rinsed/ Irrigated with Saline -Foul Odor after Cleansing No -Anesthetic Used 5% Lidocaine Gel WC - Nurse 2 - General Ulcer CM Notes Start: 01/18/20 13:07 Freq: Status: Active Protocol: Activity Type Activity Date Activity User E-Sign Co-Sign Detail Recorded Client Recorded Date Recorded By Document 02/01/20 13:12 [id number] 02/01/20 13:14 02/01/20 13:12 Wound Center Nurse 2 [Procedure/Treatment] -Time 13:13 -Correct Patient Yes -Correct Side, Site, Position Yes -Correct Procedure Yes -Procedure Performed Yes -Type of Procedure Debridement -Clinical Debridement Subcutaneous -Tissue Removed Subcutaneous -Post Debridement (cm) - Length 0.3 -Post Debridement (cm) - Width 1.1 -Post Debridement (cm) - Depth 0.1 -Total Square (Post) (cm) 0.33 -Area of Debridement (cm) - Length 0.3 -Area of Debridement (cm) - Width 1.1 -Total Square (Area) (cm) 0.33 -Tunneling No -Undermining/Tunneling No -Circular Undermining No -Wound/Ulcer Outcome Not Healed -Ulcer Cleansing Rinsed/ Irrigated with Saline -Foul Odor after Cleansing No -Bioengineered Tissue No -Bleeding Controlled with Pressure -Offloading No -Debridement - Subq, 1st 20sq cm Yes [See Physician Procedure note for Specifics] Pain Scale: 0-10 Numeric [Pain] -Is Patient Pain Free? Yes WC - Nurse 3 - General Ulcer D/C NN Start: 01/18/20 13:07 Freq: Status: Active Protocol: Activity Type Activity Date Activity User E-Sign Co-Sign Detail Recorded Client Recorded Date Recorded By Document 02/01/20 13:23 [facility] [id number] 02/01/20 13:24 [facility] 02/01/20 13:23 Wound Care Nurse 3 [Wound Dressing] #1- LUMBAR -Ulcer Cleansing Rinsed/ Irrigated with Saline -Foul Odor after Cleansing No -Primary Dressing Applied Promogran -Primary Dressing Covered/Secured Dry Gauze, with Secured with Tape -Promogran 1 [Post Procedure Tolerated] -Treatment Response Procedure Tolerated Well Vital Signs [Respirations] -Respiratory Rate (12-18) 16 -Respiratory rate source Observation -Oxygen Delivery Method Room Air Pain Scale: 0-10 Numeric [Pain] -Is Patient Pain Free? Yes - Visit Discharge [Visit Discharge Information] -Discharge Condition Stable -Ambulatory Status Ambulatory -Transportation Private Auto -Accompanied by Neurological: Neuro grossly intact Psych/Mental Status: Normal Affect, Appropriate, Alert and oriented to time, place, person, mood and affect Debridement Note Post-Debridement Measurements/Treatment WC - Nurse 2 - General Ulcer CM Notes Start: 01/18/20 13:07 Freq: Status: Active Protocol: Activity Type Activity Date Activity User E-Sign Co-Sign Detail Recorded Client Recorded Date Recorded By Document 01/18/20 13:33 MW [id number] 01/18/20 13:35 MW Document 01/25/20 13:23 MW [id number] 01/25/20 13:26 MW Document 02/01/20 13:12 MW [id number] 02/01/20 13:14 MW 01/18/20 01/25/20 02/01/20 13:33 13:23 13:12 Wound Center Nurse 2 #1- LUMBAR -Time 13:33 13:23 13:13 -Correct Patient Yes Yes Yes -Correct Side, Site, Position Yes Yes Yes -Correct Procedure Yes Yes Yes -Procedure Performed Yes Yes Yes -Type of Procedure Debridement Debridement Debridement -Clinical Debridement Subcutaneous Subcutaneous Subcutaneous -Tissue Removed Subcutaneous Subcutaneous Subcutaneous -Post Debridement (cm) - Length 0.9 0.4 0.3 -Post Debridement (cm) - Width 2.2 2.3 1.1 -Post Debridement (cm) - Depth 0.1 0.1 0.1 -Total Square (Post) (cm) 1.98 0.92 0.33 -Area of Debridement (cm) - Length 0.9 0.4 0.3 -Area of Debridement (cm) - Width 2.2 2.3 1.1 -Total Square (Area) (cm) 1.98 0.92 0.33 -Tunneling No No No -Undermining/Tunneling No No No -Circular Undermining No No No -Wound/Ulcer Outcome Not Healed Not Healed Not Healed -Ulcer Cleansing Rinsed/ Rinsed/ Rinsed/ Irrigated with Irrigated with Irrigated with Saline Saline Saline -Foul Odor after Cleansing No No No -Bioengineered Tissue No No No -Bleeding Controlled with Pressure Pressure Pressure -Offloading No No No -Debridement - Subq, 1st 20sq cm Yes Yes Yes Pain Scale: 0-10 Numeric Is Patient Pain Free? Yes Yes Yes VALENTINA - Nurse 3 - General Ulcer D/C NN Start: 01/18/20 13:07 Freq: Status: Active Protocol: Activity Type Activity Date Activity User E-Sign Co-Sign Detail Recorded Client Recorded Date Recorded By Document 01/18/20 13:45 BMF [id number] 01/18/20 13:46 [facility] Document 01/25/20 13:31 [facility] [id number] 01/25/20 13:31 [facility] Document 02/01/20 13:23 [facility] [id number] 02/01/20 13:24 [facility] 01/18/20 01/25/20 02/01/20 13:45 13:31 13:23 Wound Care Nurse 3 #1- LUMBAR -Ulcer Cleansing Rinsed/ Rinsed/ Rinsed/ Irrigated with Irrigated with Irrigated with Saline Saline Saline -Foul Odor after Cleansing No No No -Primary Dressing Applied Promogran Promogran Promogran Francisco Matter Francisco Matter -Primary Dressing Covered/Secured with Dry Gauze, Dry Gauze, Dry Gauze, Secured with Secured with Secured with Tape Tape Tape -Promogran 1 -Promogran Francisco Matter 1 1 Treatment Response Procedure Procedure Procedure Tolerated Well Tolerated Well Tolerated Well Pain Scale: 0-10 Numeric Is Patient Pain Free? Yes Yes Yes Vital Signs Respiratory Rate (12-18) 16 Respiratory rate source Observation Oxygen Delivery Method Room Air WC - Visit Discharge Discharge Condition Stable Stable Stable Ambulatory Status Ambulatory Ambulatory Ambulatory Transportation Private Auto Private Auto Private Auto Accompanied by Wound debrided: Stage III pressure injury of lower back Type of Debridement: Excisional debridement Anesthesia Used: 5% Lidocaine Gel Depth: in the subcutaneous layer Percentage of wound debrided: 100 Instrument Used: 3mm curette Tissue Removed: Slough and devitalized tissue Severity: Fat Layer Exposed Amount of bleeding with debridement: Mild Bleeding Controlled with: Pressure Patient tolerated procedure well Assessment/Plan Active Problems (Last Reviewed 01/19/20 @ 10:56 by Rebecca Lorenz) Delayed wound healing (Acute) Pressure injury of lower back, stage 3 (Acute) History of total vaginal hysterectomy (TVH) (Acute ~11/2019) Incomplete uterovaginal prolapse (Acute) plan TVH BS combo case with gracie Mary Assessment: See above diagnoses Plan: The patient was seen and examined at the wound center today and was updated on the plan of care. A subcutaneous debridement was performed today. The patient tolerated the procedure well. The patients wound care will consist of: Application of Francisco and cover with gauze change daily. Hold wound cultures at this time and hold off on baseline blood work. Most recent blood work was reviewed. patient educated on the importance of diet on wound healing and instructed to increase protein and vitamin C intake. Patient verbalized understanding. Patient will follow up at wound healing center in one week or sooner if needed. Discussed with patient red flag signs symptoms requiring urgent medical attention. Patient verbalized understanding. Discussed specific signs of infection. Given the delayed wound healing will apply for an advanced skin substitute as ulcer has been present greater than 4 weeks now. This note was generated with [employer] dictation software. It may contain incorrect words, spelling, and punctuation that were not noted in checking the note before signing. [id number]: [id number] Marlin subq tissue 20 sq cm/<
== END 2020-02-07 23:59 ==
LOC: WC 12:45
PROVIDERS: PCP Family Medicine; Visit Provider Nurse Practitioner Family
DX: L89.103 Pressure ulcer of unspecified part of back, stage 3 (principal); T14.8XXD Other injury of unspecified body region, subsequent encounter; Y83.8 Other surgical procedures as the cause of abnormal reaction of the patient, or of later complication, without mention of misadventure at the time of the procedure; Z90.710 Acquired absence of both cervix and uterus
CPT/HCPCS: 11042

== ENCOUNTER 2020-02-08 08:01 | Outpatient (RCR) | payer BC, SELFPAY ==
[2020-02-02 15:54] VITALS: BMI 27.3
[2020-02-08 00:37] VITALS: BP 141/83; PULSE 60; RESP 16; TEMP 36.6; O2SAT 98
[2020-02-08 13:05] VITALS: BP 124/71; PULSE 60; RESP 18; TEMP 36.1; BMI 27.3
--- NOTE | 2020-02-08 16:27 | PN.PCM_ITS ---
(1) Pressure injury of lower back, stage 3 Status: Acute Code(s): L89.103 - Pressure ulcer of unspecified part of back, stage 3 (2) Delayed wound healing Status: Acute Code(s): T14.8XXD - Other injury of unspecified body region, subsequent encounter (3) History of total vaginal hysterectomy (TVH) Status: Acute Code(s): Z90.710 - Acquired absence of both cervix and uterus Type of Wound Date of Service: 02/08/20 Chief Complaint: Pressure injury back status post recent surgery for total hysterectomy History of Wound: This is a 54-year-old white female who presents to the wound healing center today with complaint of pressure injury to her low back. This occurred per patient report after her surgery for pelvic reconstruction and total hysterectomy on 11/28/2019. She states that it occurred due to the way she was positioned on the operating table. She notes that her surgery went well, however she did develop this pressure injury and has been placed on Bactrim and utilizing a dressing over top of the injury. She states that she has been trying to keep pressure off the injury. She denies any systemic signs of infection at this time. She denies any fever, chills, purulent drainage, or any other acute concerns. She denies any other aggravating relieving factors. All other systems reviewed and negative with exception of those listed above. Progress of Wound: 12/21/19-pressure ulcer appears stable, less amount of slough and eschar today, doing well with santyl, no new concerns. 12/28/19-pressure ulcer appears stable, less amount of slough , doing well with santyl, no new concerns. 01/04/20-pressure ulcer appears stable, less amount of slough , doing well with santyl, no new concerns. 01/18/20-pressure ulcer appears doing well with francisco, no new concerns. 01/25/20-pressure ulcer appears doing well with francisco, no new concerns. 02/01/20-pressure ulcer appears doing well with francisco, no new concerns. 02/08/2020?patient is healed, no signs of infection at this time. - Physical Exam Vital Signs Temp Pulse Resp BP Pulse Ox 96.9 F L 60 18 124/71 H 98 02/08/20 13:05 02/08/20 13:05 02/08/20 13:05 02/08/20 13:05 02/08/20 00:37 General: Alert, Oriented x3, Cooperative, No apparent distress HEENT: Atraumatic Oral: Moist Mucosa Lungs: Clear to auscultation, Normal air movement, No rhonchi, No wheeze, No rales Cardiovascular: Regular rate, Regular Rhythm Abdomen: Soft, Non Tender Extremities: No clubbing, No cyanosis, No edema Skin: Ulcer/ Wound - See nursing documentation, wound is healed without any signs of infection at this time Wound Measurements and Assessment WC - Nurse 1 - General Ulcer Measurement Start: 02/08/20 13:05 Freq: Status: Discharge Protocol: Activity Type Activity Date Activity User E-Sign Co-Sign Detail Recorded Client Recorded Date Recorded By Document 02/08/20 13:05 RB [id number] 02/08/20 13:07 RB Edit Status 02/08/20 13:33 BKG DAEMON Active=>Discharge [id number] 02/08/20 13:33 BKG DAEMON 02/08/20 13:05 Wound Center Nurse 1 [Ulcer Assessment] #1- LUMBAR -Combined with other wound No -Current Size (cm) - Length 0.1 -Current Size (cm) - Width 0.1 -Current Size (cm) - Depth 0.1 -Total Square Cm 0.01 -Tunneling No -Undermining/Tunneling No -Circular Undermining No -Exudate Amt Small -Exudate Type Serosanguineous -Wound Margin Flat & Intact -Granulation Amt None Present (0 %) -Granulation Quality Red -Slough/Fibrin Yes -Necrosis Amt Small (1-33%) -Necrotic Tissue Type Adherent Slough -Structure Exposed N/A -Texture (Genoveva-wound Skin Appearance) Assessed, Localized Edema -Moisture (Genoveva-wound Skin Appearance Assessed ) -Color (Genoveva-wound Skin Appearance) Assessed, Erythema -Temperature (Genoveva-wound Skin No Abnormality Appearance) (Pt Warm) -Tenderness on Palpation (Genoveva-wound No Skin Appearance) -Ulcer Cleansing Wound Cleanser -Foul Odor after Cleansing No -Anesthetic Used 4% Lidocaine Solution VALENTINA - Nurse 2 - General Ulcer CM Notes Start: 02/08/20 13:05 Freq: Status: Discharge Protocol: Activity Type Activity Date Activity User E-Sign Co-Sign Detail Recorded Client Recorded Date Recorded By Document 02/08/20 13:19 MW [id number] 02/08/20 13:20 MW Edit Status 02/08/20 13:33 BKLatonya DAEMON Active=>Discharge [facility]-BG11 02/08/20 13:33 BKG DAEMON 02/08/20 13:19 Wound Center Nurse 2 [Procedure/Treatment] -Time 13:20 -Correct Patient Yes -Correct Side, Site, Position Yes -Correct Procedure Yes -Procedure Performed No -Post Debridement (cm) - Length 0 -Post Debridement (cm) - Width 0 -Post Debridement (cm) - Depth 0 -Total Square (Post) (cm) 0 -Wound/Ulcer Outcome Healed- Epithelialized [See Physician Procedure note for Specifics] Pain Scale: 0-10 Numeric [Pain] -Is Patient Pain Free? Yes WC - Nurse 3 - General Ulcer D/C NN Start: 02/08/20 13:05 Freq: Status: Discharge Protocol: Activity Type Activity Date Activity User E-Sign Co-Sign Detail Recorded Client Recorded Date Recorded By Document 02/08/20 13:30 BM [id number] 02/08/20 13:30 BMF Edit Status 02/08/20 13:33 BKLatonya DAEMON Active=>Discharge [facility] 02/08/20 13:33 BKG DAEMON 02/08/20 13:30 Wound Care Nurse 3 [Post Procedure Tolerated] -Treatment Response Procedure Tolerated Well Pain Scale: 0-10 Numeric [Pain] -Is Patient Pain Free? Yes WC - Visit Discharge [Visit Discharge Information] -Discharge Condition Stable -Ambulatory Status Ambulatory -Transportation Private Auto -Notes: adaptic and gauze to healed area. secured w/ tape Lymphatic: Cervical Adenopathy Neurological: Neuro grossly intact Psych/Mental Status: Normal Affect, Appropriate, Alert and oriented to time, place, person, mood and affect Debridement Note Post-Debridement Measurements/Treatment WC - Nurse 2 - General Ulcer CM Notes Start: 02/08/20 13:05 Freq: Status: Discharge Protocol: Activity Type Activity Date Activity User E-Sign Co-Sign Detail Recorded Client Recorded Date Recorded By Document 02/08/20 13:19 MW [id number] 02/08/20 13:20 MW 02/08/20 13:19 Wound Center Nurse 2 #1- LUMBAR -Time 13:20 -Correct Patient Yes -Correct Side, Site, Position Yes -Correct Procedure Yes -Procedure Performed No -Post Debridement (cm) - Length 0 -Post Debridement (cm) - Width 0 -Post Debridement (cm) - Depth 0 -Total Square (Post) (cm) 0 -Wound/Ulcer Outcome Healed- Epithelialized Pain Scale: 0-10 Numeric Is Patient Pain Free? Yes WC - Nurse 3 - General Ulcer D/C NN Start: 02/08/20 13:05 Freq: Status: Discharge Protocol: Activity Type Activity Date Activity User E-Sign Co-Sign Detail Recorded Client Recorded Date Recorded By Document 02/08/20 13:30 [facility] [id number] 02/08/20 13:30 [facility] 02/08/20 13:30 Wound Care Nurse 3 Treatment Response Procedure Tolerated Well Pain Scale: 0-10 Numeric Is Patient Pain Free? Yes WC - Visit Discharge Discharge Condition Stable Ambulatory Status Ambulatory Transportation Private Auto Notes: adaptic and gauze to healed area. secured w/ tape Assessment/Plan Assessment: See above diagnoses Plan: The patient was seen and examined at the wound center today and was updated on the plan of care. Her ulceration is healed without any signs of infection at this time. Patient educated on the importance of diet on wound healing and instructed to increase protein and vitamin C intake. Patient verbalized understanding. Patient will be discharged from the wound healing center. This note was generated with [employer] dictation software. It may contain incorrect words, spelling, and punctuation that were not noted in checking the note before signing. Office Visits / Consults: [id number] OV L3 Est
== END 2020-02-08 13:33 | disposition home or self-care (01) ==
LOC: WC 08:01
PROVIDERS: PCP Family Medicine; Visit Provider Nurse Practitioner Family
DX: Z09 Encounter for follow-up examination after completed treatment for conditions other than malignant neoplasm (principal)
CPT/HCPCS: 99213; G0463

== ENCOUNTER → 2021-10-09 | Outpatient (CLI) | payer BC, SELFPAY ==
--- NOTE | 2021-10-09 09:00 | ECHOD_ITS ---
Version 2 Reason For Study: DYSPNEA Procedure This was a 2D Doppler, Color Flow transthoracic echocardiogram. Exam performed in department. Left Ventricle Normal LV size. The estimated ejection fraction is 55 %. Stage 1 diastolic dysfunction. No regional wall motion abnormalities noted. Right Ventricle Normal RV size. Normal systolic function. Atria Normal left atrium. Normal right atrium. Mitral Valve Normal mitral valve. Tricuspid Valve Normal tricuspid valve. Trivial tricuspid valve insufficiency. Aortic Valve Normal aortic valve. Trisinus/trileaflet aortic valve. Pulmonic Valve Normal pulmonic valve. Great Vessels Normal aortic root. The pulmonary artery is normal size. Normal inferior vena cava. Pericardium/Pleural No pericardial effusion. MMode/2D Measurements & Calculations LVIDd: 5.0 cm IVSd: 0.95 cm Ao root diam: 3.2 cm LVIDs: 3.3 cm LVPWd: 0.79 cm RVDd: 3.4 cm FS: 34.6 % LAV(MOD-sp2): 74.0 ml LVAd ap4: 23.6 cm2 SV(MOD-sp4): 25.3 ml LVLd ap4: 6.5 cm EDV(MOD-sp4): 70.7 ml EDV(sp4-el): 73.7 ml LVAs ap4: 18.6 cm2 LVLs ap4: 6.7 cm ESV(MOD-sp4): 45.4 ml ESV(sp4-el): 43.9 ml EF(MOD-sp4): 35.8 % EF(sp4-el): 40.4 % SV(sp4-el): 29.8 ml LA A4 area: 16.1 cm2 LA dimension(2D): 2.9 cm RA A4 area: 13.0 cm2 Doppler Measurements & Calculations MV E max sukhdev: 55.0 cm/sec Lat Peak E' Sukhdev: 11.0 cm/sec Med Peak E' Sukhdev: 7.7 cm/sec MV A max sukhdev: 82.5 cm/sec E/E' lat: 5.0 E/E' med: 7.2 MV E/A: 0.67 Ao V2 max: 121.3 cm/sec LV V1 max: 93.3 cm/sec PA V2 max: 79.9 cm/sec Ao max P.9 mmHg LV V1 max P.5 mmHg TR max sukhdev: 195.8 cm/sec TR max P.3 mmHg ECHO/Echo Complete Interpretation Summary Normal LV size. The estimated ejection fraction is 55 %. Normal left atrium. Stage 1 diastolic dysfunction. Trivial tricuspid valve insufficiency. Structurally normal valves. Ordering Physician: Josh Palacios Referring Physician: Josh Palacios Performed By: Zuleyka Fernando RCS
== END | disposition home or self-care (01) ==
PROVIDERS: PCP Family Medicine; Referring Provider Internal Medicine Cardiovascular Disease; Visit Provider Internal Medicine Cardiovascular Disease
DX: I49.49 Other premature depolarization (principal)
CPT/HCPCS: 93306

== ENCOUNTER → 2024-03-30 | Outpatient (CLI) | payer BC, SELFPAY ==
--- NOTE | 2024-03-30 14:07 | US_ITS ---
EXAM: US RETROPERITONEAL LIMITED, RENAL CLINICAL INDICATION: UTI TECHNIQUE: Limited grayscale and color Doppler sonographic evaluation of the retroperitoneum was performed. COMPARISON: No relevant prior studies available. FINDINGS: RIGHT KIDNEY: Normal. No hydronephrosis. No shadowing calculus. No perinephric collection is demonstrated. Right kidney measures 8.8 cm in length. LEFT KIDNEY: Normal. No hydronephrosis. No shadowing calculus. No perinephric collection is demonstrated. Left kidney measures 10.8 cm in length. BLADDER: Urinary bladder is normal. US/Kidney and Bladder IMPRESSION: No hydronephrosis or perinephric fluid collection. Electronically Signed: Thomas Morales MD at 17:11 EST ,
== END | disposition home or self-care (01) ==
PROVIDERS: PCP Family Medicine; Referring Provider Urology; Visit Provider Urology
DX: N39.0 Urinary tract infection, site not specified (principal)
CPT/HCPCS: 76770